=== PATIENT | male | born 1935 | race Caucasian/White ===

== ENCOUNTER 2017-10-30 11:02 | Outpatient (RCR) | payer MEDICARE ==
[~2017-10-30 11:02] MED LIST: ASPIRIN EC325 MG ORAL; ASPIRIN81 M1 PO; COLCHICINE0.6 MG PO; CULTURELLE1 EACH PO; FENOFIBRATE145 MG PO; IMODIUM2 MG PO; LANOXIN125 MCG PO; METFORMIN HCL500 MG PO; POTASSIUM CHLO10 MEQ PO; TENORMIN25 MG PO
[2017-11-18] MEDS ORDERED: ISOSORBIDE DINI30 MG ORAL (00:34)
[2017-11-18] MEDS ORDERED: BUMETANIDE1 MG ORAL (00:34)
[2017-11-18] MEDS ORDERED: METOPROLOL TART25 MG ORAL (00:34)
[2017-11-18] MEDS ORDERED: ANORO ELLIPTA1 EACH (00:34)
[2017-11-18] MEDS ORDERED: DIGOXIN125 MCG ORAL (00:34)
[2017-11-18] MEDS ORDERED: GABAPENTIN300 MG ORAL (00:34)
== END 2017-11-22 | disposition home or self-care (01) ==
LOC: WCC 11:02
DX: L98.493 Non-pressure chronic ulcer of skin of other sites with necrosis of muscle (principal); T81.31XS Disruption of external operation (surgical) wound, not elsewhere classified, sequela; I10 Essential (primary) hypertension; Z85.46 Personal history of malignant neoplasm of prostate; Z85.51 Personal history of malignant neoplasm of bladder; Z87.891 Personal history of nicotine dependence; Z85.72 Personal history of non-Hodgkin lymphomas; Z79.82 Long term (current) use of aspirin; Z88.8 Allergy status to other drugs, medicaments and biological substances; Z91.013 Allergy to seafood
CPT/HCPCS: G0463

== ENCOUNTER 2017-11-17 21:23 | Inpatient (IN) | payer MEDICARE ==
[~2017-11-17] VITALS: Ht 172.7 cm; Wt 67.7 kg
[2017-11-17 21:25] VITALS: BP 130/70
--- NOTE | 2017-11-17 21:28 | Emergency Room Report ---
History of Present Illness General Chief Complaint: Chest Pain Source: Patient, EMS Present Illness HPI This is an 82-year-old male with multiple medical problem. He has a history of atrial fibrillation but not on anticoagulants in. He has a history of multiple cancers including T-cell lymphoma. He has a colostomy bag and a ileostomy. He presents with chief complaint of chest pressure that started this afternoon. He said this occurred after he had his pulmonary function test. Nothing made it better. Nothing made it worse. No nausea no vomiting. No fever or chills. No diaphoresis. No radiation. Allergies: Coded Allergies: CIPROFLOXACIN (Verified Allergy, Intermediate, 07/06/16) ALLOPURINOL (Verified Allergy, Mild, Rash, 07/12/12) ERYTHROMYCIN BASE (Verified Allergy, Mild, RASH, 07/12/12) Patient History Past Medical History: see triage record, old chart reviewed, HTN, CAD, AFib Past Surgical History: other Pertinent Family History: none Social History: Denies: smoking Immunizations: other Reviewed Nursing Documentation: PMH: Agreed Nursing Documentation-PMH Past Medical History: No History, Except For Hx Hypertension: Yes Hx Diabetes: Yes Hx Cancer: Yes - T CELL LYMPHOMA, prostate Hx Gastrointestinal Problems: Yes Hx Weakness: Yes - Bilateral lower extremity Review of Systems Eye: Denies: eye pain, blurred vision ENT: Denies: ear pain, nose congestion, throat swelling Respiratory: Denies: cough, shortness of breath Cardiovascular: Reports: chest pain, Denies: palpitations Gastrointestinal: Denies: abdominal pain, diarrhea, nausea, vomiting Musculoskeletal: Denies: back pain, joint pain Skin: Denies: rash Neurological: Denies: headache, numbness Endocrine: Denies: increased thirst, increased urine Hematologic/Lymphatic: Denies: easy bruising All Other Systems: negative except mentioned in HPI Physical Exam Vital Signs Date Time Temp Pulse Resp B/P (MAP) Pulse Ox O2 Delivery O2 Flow Rate FiO2 11/17/17 21:14 97.0 97 20 130/70 96 Room Air vitals normal Sp02 EP Interpretation: reviewed, normal General Appearance: well appearing, no apparent distress, alert Head: normocephalic, atraumatic Eyes: bilateral eye PERRL, bilateral eye EOMI ENT: hearing grossly normal, normal pharynx Neck: full range of motion, supple, no meningismus Respiratory: chest non-tender, lungs clear, normal breath sounds Cardiovascular #1: regular rate, rhythm, no murmur Gastrointestinal: normal bowel sounds, non tender, no mass, no organomegaly, no bruit, non-distended Musculoskeletal: back normal, gait/station normal, normal range of motion Psychiatric: mood/affect normal Skin: warm/dry Medical Decision Making Diagnostic Impression: Primary Impression: Chest pain Qualified Codes: R07.9 - Chest pain, unspecified Additional Impression: CHF exacerbation Qualified Codes: I50.9 - Heart failure, unspecified ER Course Patient with atypical chest pain and tightness. No evidence of PE or dissection. Troponin negative. Patient felt better now. He refused aspirin here. Lasix given. Will admit for further workup. Laboratory Tests Test 11/17/17 21:30 White Blood Count 11.6 K/UL (4.8-10.8) H Red Blood Count 4.19 M/UL (4.70-6.10) L Hemoglobin 11.1 G/DL (14.2-18.0) L Hematocrit 35.9 % (42.0-52.0) L Mean Corpuscular Volume 86 FL (80-99) Mean Corpuscular Hemoglobin 26.5 PG (27.0-31.0) L Mean Corpuscular Hemoglobin Concent 31.0 G/DL (32.0-36.0) L Red Cell Distribution Width 17.6 % (11.6-14.8) H Platelet Count 280 K/UL (150-450) Mean Platelet Volume 5.9 FL (6.5-10.1) L Neutrophils (%) (Auto) 59.1 % (45.0-75.0) Lymphocytes (%) (Auto) 32.7 % (20.0-45.0) Monocytes (%) (Auto) 5.0 % (1.0-10.0) Eosinophils (%) (Auto) 2.0 % (0.0-3.0) Basophils (%) (Auto) 1.3 % (0.0-2.0) Prothrombin Time 10.6 SEC (9.30-11.50) Prothromb Time International Ratio 1.0 (0.9-1.1) Activated Partial Thromboplast Time 28 SEC (23-33) Sodium Level 140 MMOL/L (136-145) Potassium Level 4.6 MMOL/L (3.5-5.1) Chloride Level 105 MMOL/L (98-107) Carbon Dioxide Level 27 MMOL/L (21-32) Anion Gap 8 mmol/L (5-15) Blood Urea Nitrogen 24 mg/dL (7-18) H Creatinine 2.0 MG/DL (0.55-1.30) H Estimat Glomerular Filtration Rate mL/min (>60) Glucose Level 119 MG/DL (74-106) H Calcium Level 8.4 MG/DL (8.5-10.1) L Total Bilirubin 0.3 MG/DL (0.2-1.0) Aspartate Amino Transf (AST/SGOT) 19 U/L (15-37) Alanine Aminotransferase (ALT/SGPT) 12 U/L (12-78) Alkaline Phosphatase 61 U/L (46-116) Total Creatine Kinase 18 U/L (26-308) L Creatine Kinase MB 0.8 NG/ML (0.0-3.6) Creatine Kinase MB Relative Index 4.4 Troponin I 0.000 ng/mL (0.000-0.056) Pro-B-Type Natriuretic Peptide 2047 pg/mL (0-125) H Total Protein 5.7 G/DL (6.4-8.2) L Albumin 2.0 G/DL (3.4-5.0) L Globulin 3.7 g/dL Albumin/Globulin Ratio 0.5 (1.0-2.7) L Lab Results Impression labs with elevated BNP EKG Diagnostic Results Rate: normal Rhythm: other - afib ST Segments: no acute changes ASA given to the pt in ED: No - pt refused Rhythm Strip Diag. Results Rhythm Strip Time: 23:28 EP Interpretation: yes Rate: 98 Rhythm: no PVC's, no ectopy, other - afib Chest X-Ray Diagnostic Results Chest X-Ray Diagnostic Results : Chest X-Ray Ordered: Yes # of Views/Limited/Complete: 1 View Indication: Chest Pain EP Interpretation: Yes Interpretation: no consolidation, no effusion, no pneumothorax, other - vasc congestion Impression: Other - chf Electronically Signed by: Akil Schultz MD Last Vital Signs Date Time Temp Pulse Resp B/P (MAP) Pulse Ox O2 Delivery O2 Flow Rate FiO2 11/17/17 21:14 97.0 97 20 130/70 96 Room Air Status: improved Disposition: ADMITTED INPATIENT Condition: Serious AKIL SCHULTZ M.D. Nov 17, 2017 21:28
[2017-11-17] MEDS ORDERED: Aspirin Baby 81mg ORAL ONE (21:30)
[2017-11-17 22:07] LABS: BASOPHILS % (AUTO) 1.3 % (0.0-2.0); HEMATOCRIT 35.9 % (42.0-52.0); HEMOGLOBIN 11.1 G/DL (14.2-18.0); LYMPHOCYTES % (AUTO) 32.7 % (20.0-45.0); MEAN CORPUSCULAR VOLUME 86 FL (80-99); NEUTROPHILS % (AUTO) 59.1 % (45.0-75.0); PLATELET COUNT 280 K/UL (150-450); RED BLOOD COUNT 4.19 M/UL (4.70-6.10); RED CELL DISTRIBUTION WIDTH 17.6 % (11.6-14.8); WHITE BLOOD COUNT 11.6 K/UL (4.8-10.8)
[2017-11-17 22:34] LABS: ANION GAP 8 mmol/L (5-15); BLOOD UREA NITROGEN 24 mg/dL (7-18); CALCIUM 8.4 MG/DL (8.5-10.1); CARBON DIOXIDE 27 MMOL/L (21-32); CHLORIDE 105 MMOL/L (98-107); POTASSIUM 4.6 MMOL/L (3.5-5.1); SODIUM 140 MMOL/L (136-145)
[2017-11-17 23:01] LABS: ALANINE AMINOTRANSFERASE 12 U/L (12-78); ALBUMIN/GLOBULIN RATIO 0.5 (1.0-2.7); ALKALINE PHOSPHATASE 61 U/L (46-116); ASPARTATE AMINO TRANSFERASE 19 U/L (15-37); BILIRUBIN,TOTAL 0.3 MG/DL (0.2-1.0); CKMB 0.8 NG/ML (0.0-3.6); CREATINE KINASE 18 U/L (26-308)
[2017-11-17 23:30] VITALS: BP 127/83
[2017-11-18] VITALS (7 sets, daily range): BP systolic 113–125; BP diastolic 69–82
[2017-11-18] MEDS ORDERED: DIGOXIN125 MCG ORAL (00:34)
[2017-11-18] MEDS ORDERED: ISOSORBIDE DINI30 MG ORAL (00:34)
[2017-11-18] MEDS ORDERED: BUMETANIDE1 MG ORAL (00:34)
[2017-11-18] MEDS ORDERED: METOPROLOL TART25 MG ORAL (00:34)
[2017-11-18] MEDS ORDERED: GABAPENTIN300 MG ORAL (00:34)
[2017-11-18] MEDS ORDERED: ANORO ELLIPTA1 EACH (00:34)
[2017-11-18] MEDS ORDERED: Albuterol/Ipratropium 3ml neb HHN PRN (05:15)
[2017-11-18] MEDS ORDERED: Miralax 17gm pkt ORAL PRN (05:15)
[2017-11-18] MEDS: NovoLOG Insulin Flexpen SUBQ SCH ×4 (06:30→20:39)
--- NOTE | 2017-11-18 07:08 | Consultation ---
History of Present Illness General Date patient seen: Nov 18, 2017 Chief Complaint: Chest Pain Reason for Consultation: chest pain Present Illness HPI 82-year-old male with history of atrial fibrillation but not on anticoagulants , T-cell lymphoma, colostomy bag and a ileostomy presented with chief complaint of chest pressure that started yesterday afternoon. He said this occurred after he had his pulmonary function test. Nothing made it better. Nothing made it worse. No nausea no vomiting. Pt is admitted to telemetry for further evaluation. Allergies: Coded Allergies: CIPROFLOXACIN (Verified Allergy, Intermediate, 07/06/16) ALLOPURINOL (Verified Allergy, Mild, Rash, 07/12/12) ERYTHROMYCIN BASE (Verified Allergy, Mild, RASH, 07/12/12) Medication History Scheduled Aspirin* (Aspirin Ec*), 325 MG ORAL DAILY, (Reported) Atenolol (Tenormin), 25 MG PO DAILY, (Reported) Bumetanide* (Bumetanide*), 1 MG ORAL EVERY OTHER DAY, (Reported) Colchicine* (Colchicine*), 0.5 MG PO DAILY, (Reported) Digoxin* (Lanoxin*), 125 MCG PO DAILY, (Reported) Digoxin* (Digoxin*), 125 MCG ORAL DAILY, (Reported) Fenofibrate Nanocrystallized (Fenofibrate), 145 MG PO DAILY, (Reported) Gabapentin* (Gabapentin*), 300 MG ORAL BEDTIME, (Reported) Isosorbide Dinitrate* (Isordil*), 30 MG ORAL DAILY, (Reported) Lactobacillus Rhamnosus Gg* (Culturelle*), 1 EACH PO DAILY, (Reported) Loperamide HCl (Loperamide), 2 MG PO DAILY, (Reported) Metformin Hcl (Metformin Hcl), 500 MG PO DAILY, (Reported) Metoprolol Tartrate* (Metoprolol Tartrate*), 25 MG ORAL TID, (Reported) Potassium Chloride* (K-Dur*), 10 MEQ PO DAILY, (Reported) Umeclidinium Brm/Vilanterol Tr (Anoro Ellipta 62.5-25 Mcg INH), DAILY, (Reported ) Patient History Healthcare decision maker Resuscitation status Full Code Advanced Directive on File Past Medical/Surgical History Past Medical/Surgical History: (1) Atrial fibrillation Review of Systems All Other Systems: negative except mentioned in HPI Physical Exam Physical Exam Narrative General Appearance: WD/WN HEENT: normocephalic, anicteric Respiratory/Chest: chest wall non-tender, lungs clear, normal breath sounds Breasts: no masses Cardiovascular: normal peripheral pulses, regularly irregular Abdomen: normal bowel sounds, soft, non tender Genitourinary: normal external genitalia Skin: no rash Last 24 Hour Vital Signs Date Time Temp Pulse Resp B/P (MAP) Pulse Ox O2 Delivery O2 Flow Rate FiO2 11/18/17 04:00 106 11/18/17 04:00 97.3 91 18 123/79 99 Room Air 11/18/17 03:26 96 11/18/17 03:10 97.0 100 12 120/81 98 Room Air 11/18/17 03:05 100 12 120/81 98 Room Air 11/18/17 01:25 109 17 120/74 100 Room Air 11/17/17 23:30 106 20 127/83 97 Room Air 11/17/17 21:25 97.0 20 130/70 96 Room Air 11/17/17 21:25 97 20 Room Air 11/17/17 21:14 97.0 97 20 130/70 96 Room Air Intake and Output 11/17/17 11/18/17 19:00 07:00 Intake Total 0 ml Output Total 300 ml Balance -300 ml Intake Oral 0 ml Output Urine Total 300 ml # Bowel Movements 1 Laboratory Tests Test 11/17/17 21:30 White Blood Count 11.6 K/UL (4.8-10.8) H Red Blood Count 4.19 M/UL (4.70-6.10) L Hemoglobin 11.1 G/DL (14.2-18.0) L Hematocrit 35.9 % (42.0-52.0) L Mean Corpuscular Volume 86 FL (80-99) Mean Corpuscular Hemoglobin 26.5 PG (27.0-31.0) L Mean Corpuscular Hemoglobin Concent 31.0 G/DL (32.0-36.0) L Red Cell Distribution Width 17.6 % (11.6-14.8) H Platelet Count 280 K/UL (150-450) Mean Platelet Volume 5.9 FL (6.5-10.1) L Neutrophils (%) (Auto) 59.1 % (45.0-75.0) Lymphocytes (%) (Auto) 32.7 % (20.0-45.0) Monocytes (%) (Auto) 5.0 % (1.0-10.0) Eosinophils (%) (Auto) 2.0 % (0.0-3.0) Basophils (%) (Auto) 1.3 % (0.0-2.0) Prothrombin Time 10.6 SEC (9.30-11.50) Prothromb Time International Ratio 1.0 (0.9-1.1) Activated Partial Thromboplast Time 28 SEC (23-33) Sodium Level 140 MMOL/L (136-145) Potassium Level 4.6 MMOL/L (3.5-5.1) Chloride Level 105 MMOL/L (98-107) Carbon Dioxide Level 27 MMOL/L (21-32) Anion Gap 8 mmol/L (5-15) Blood Urea Nitrogen 24 mg/dL (7-18) H Creatinine 2.0 MG/DL (0.55-1.30) H Estimat Glomerular Filtration Rate mL/min (>60) Glucose Level 119 MG/DL (74-106) H Calcium Level 8.4 MG/DL (8.5-10.1) L Total Bilirubin 0.3 MG/DL (0.2-1.0) Aspartate Amino Transf (AST/SGOT) 19 U/L (15-37) Alanine Aminotransferase (ALT/SGPT) 12 U/L (12-78) Alkaline Phosphatase 61 U/L (46-116) Total Creatine Kinase 18 U/L (26-308) L Creatine Kinase MB 0.8 NG/ML (0.0-3.6) Creatine Kinase MB Relative Index 4.4 Troponin I 0.000 ng/mL (0.000-0.056) Pro-B-Type Natriuretic Peptide 2047 pg/mL (0-125) H Total Protein 5.7 G/DL (6.4-8.2) L Albumin 2.0 G/DL (3.4-5.0) L Globulin 3.7 g/dL Albumin/Globulin Ratio 0.5 (1.0-2.7) L Height (Feet): 5 Height (Inches): 8.00 Weight (Pounds): 150 Medications Current Medications Medications (Trade) Dose Ordered Sig/Justin Route PRN Reason Start Time Stop Time Status Last Admin Dose Admin Acetaminophen (Tylenol) 650 mg Q4H PRN ORAL Fever 11/18/17 05:15 12/18/17 05:14 Albuterol/ Ipratropium (Albuterol/ Ipratropium) 3 ml Q4H PRN HHN Shortness of Breath 11/18/17 05:15 11/23/17 05:14 Atenolol (Tenormin) 25 mg DAILY ORAL 11/18/17 09:00 12/18/17 08:59 UNV Dextrose (Dextrose 50%) STAT PRN IV Hypoglycemia 11/18/17 05:15 12/18/17 05:14 Digoxin (Lanoxin) 0.125 mg DAILY ORAL 11/18/17 09:00 12/18/17 08:59 Furosemide (Lasix) 40 mg EVERY 8 HOURS IV 11/18/17 06:00 12/18/17 05:59 11/18/17 06:40 Gabapentin (Neurontin) 300 mg BEDTIME ORAL 11/18/17 21:00 12/18/17 20:59 Heparin Sodium (Porcine) (Heparin 5000 units/ml) 5,000 units EVERY 12 HOURS SUBQ 11/18/17 09:00 12/18/17 08:59 Insulin Aspart (NovoLOG) BEFORE MEALS AND HS SUBQ 11/18/17 06:30 12/18/17 06:29 Metoprolol Tartrate (Lopressor) 25 mg TID ORAL 11/18/17 09:00 12/18/17 08:59 UNV Ondansetron HCl (Zofran) 4 mg Q6H PRN IVP Nausea & Vomiting 11/18/17 05:15 12/18/17 05:14 Polyethylene Glycol (Miralax) 17 gm DAILYPRN PRN ORAL Constipation 11/18/17 05:15 12/18/17 05:14 Temazepam (Restoril) 15 mg HSPRN PRN ORAL Insomnia 11/18/17 05:15 11/25/17 05:14 Assessment/Plan Problem List: (1) Chest pain ICD Codes: R07.9 - Chest pain, unspecified SNOMED: 83886537 Qualifiers: Qualified Codes: R07.9 - Chest pain, unspecified (2) Colostomy care ICD Codes: Z43.3 - Encounter for attention to colostomy SNOMED: 400809679 (3) Atrial fibrillation ICD Codes: I48.91 - Unspecified atrial fibrillation SNOMED: 57325908 Assessment/Plan serial ekg, troponin, echo cardio to see symptomatic treatment continue current meds CHOOC DELAROSA Nov 18, 2017 07:08
[2017-11-18] MEDS: Atenolol 25mg tab ORAL SCH (08:36)
[2017-11-18] MEDS: Digoxin 0.125mg tab ORAL SCH (08:36)
[2017-11-18] MEDS: Heparin 5000 units/ml inj SUBQ SCH ×2 (08:38→20:40)
[2017-11-18] MEDS ORDERED: Metoprolol 25mg tab ORAL PRN (09:00)
[2017-11-18] MEDS ORDERED: Metoprolol 25mg tab ORAL SCH (09:00)
--- NOTE | 2017-11-18 11:43 | Diagnostic Imaging Report ---
Indication: Chest pain Technique: XRAY Chest 1v Comparison: None Findings: Heart is borderline enlarged. Questionable surgical material projecting over the left aspect of the heart. Correlate with surgical history. No definite focal airspace consolidation. No large pleural effusion. No pneumothorax. No acute osseous abnormality seen. There is subtle lucency of the left humeral head. Impression: Question surgical material projecting over the left heart. Correlation with surgical history recommended. Alternatively echocardiogram or CT of the chest may be obtained for further evaluation. No definite focal airspace consolidation, pleural effusion or pneumothorax. Subtle asymmetric lucency of the left humeral head. Possibly artifactual. Dedicated radiographs can be obtained for better evaluation as clinically indicated.
[2017-11-18 12:26] LABS: BASOPHILS % (AUTO) 0.9 % (0.0-2.0); HEMOGLOBIN 11.3 G/DL (14.2-18.0); LYMPHOCYTES % (AUTO) 36.8 % (20.0-45.0); MEAN CORPUSCULAR VOLUME 85 FL (80-99); MONOCYTES % (AUTO) 4.7 % (1.0-10.0); NEUTROPHILS % (AUTO) 54.7 % (45.0-75.0); PLATELET COUNT 301 K/UL (150-450); RED BLOOD COUNT 4.34 M/UL (4.70-6.10); RED CELL DISTRIBUTION WIDTH 17.4 % (11.6-14.8); WHITE BLOOD COUNT 15.4 K/UL (4.8-10.8)
--- NOTE | 2017-11-18 12:38 | Cardiology Progress Note ---
Assessment/Plan Assessment/Plan The patient is seen and examined, full consult note is dictated. Objective Last 24 Hour Vital Signs Date Time Temp Pulse Resp B/P (MAP) Pulse Ox O2 Delivery O2 Flow Rate FiO2 11/18/17 10:26 97 18 Room Air 21 11/18/17 08:36 78 11/18/17 08:36 78 120/82 11/18/17 08:00 101 11/18/17 07:56 97.1 78 16 120/82 99 Room Air 11/18/17 04:00 106 11/18/17 04:00 97.3 91 18 123/79 99 Room Air 11/18/17 03:26 96 11/18/17 03:10 97.0 100 12 120/81 98 Room Air 11/18/17 03:05 100 12 120/81 98 Room Air 11/18/17 01:25 109 17 120/74 100 Room Air 11/17/17 23:30 106 20 127/83 97 Room Air 11/17/17 21:25 97.0 20 130/70 96 Room Air 11/17/17 21:25 97 20 Room Air 11/17/17 21:14 97.0 97 20 130/70 96 Room Air Intake and Output 11/17/17 11/18/17 19:00 07:00 Intake Total 0 ml Output Total 800 ml Balance -800 ml Intake Oral 0 ml Output Urine Total 800 ml # Bowel Movements 1 Laboratory Tests Test 11/17/17 21:30 11/18/17 09:00 11/18/17 12:00 White Blood Count 11.6 K/UL (4.8-10.8) H 15.4 K/UL (4.8-10.8) H Red Blood Count 4.19 M/UL (4.70-6.10) L 4.34 M/UL (4.70-6.10) L Hemoglobin 11.1 G/DL (14.2-18.0) L 11.3 G/DL (14.2-18.0) L Hematocrit 35.9 % (42.0-52.0) L 37.0 % (42.0-52.0) L Mean Corpuscular Volume 86 FL (80-99) 85 FL (80-99) Mean Corpuscular Hemoglobin 26.5 PG (27.0-31.0) L 26.0 PG (27.0-31.0) L Mean Corpuscular Hemoglobin Concent 31.0 G/DL (32.0-36.0) L 30.5 G/DL (32.0-36.0) L Red Cell Distribution Width 17.6 % (11.6-14.8) H 17.4 % (11.6-14.8) H Platelet Count 280 K/UL (150-450) 301 K/UL (150-450) Mean Platelet Volume 5.9 FL (6.5-10.1) L 5.6 FL (6.5-10.1) L Neutrophils (%) (Auto) 59.1 % (45.0-75.0) 54.7 % (45.0-75.0) Lymphocytes (%) (Auto) 32.7 % (20.0-45.0) 36.8 % (20.0-45.0) Monocytes (%) (Auto) 5.0 % (1.0-10.0) 4.7 % (1.0-10.0) Eosinophils (%) (Auto) 2.0 % (0.0-3.0) 3.0 % (0.0-3.0) Basophils (%) (Auto) 1.3 % (0.0-2.0) 0.9 % (0.0-2.0) Prothrombin Time 10.6 SEC (9.30-11.50) Prothromb Time International Ratio 1.0 (0.9-1.1) Activated Partial Thromboplast Time 28 SEC (23-33) Sodium Level 140 MMOL/L (136-145) Potassium Level 4.6 MMOL/L (3.5-5.1) Chloride Level 105 MMOL/L (98-107) Carbon Dioxide Level 27 MMOL/L (21-32) Anion Gap 8 mmol/L (5-15) Blood Urea Nitrogen 24 mg/dL (7-18) H Creatinine 2.0 MG/DL (0.55-1.30) H Estimat Glomerular Filtration Rate mL/min (>60) Glucose Level 119 MG/DL (74-106) H Calcium Level 8.4 MG/DL (8.5-10.1) L Total Bilirubin 0.3 MG/DL (0.2-1.0) Aspartate Amino Transf (AST/SGOT) 19 U/L (15-37) Alanine Aminotransferase (ALT/SGPT) 12 U/L (12-78) Alkaline Phosphatase 61 U/L (46-116) Total Creatine Kinase 18 U/L (26-308) L Creatine Kinase MB 0.8 NG/ML (0.0-3.6) Creatine Kinase MB Relative Index 4.4 Troponin I 0.000 ng/mL (0.000-0.056) 0.003 ng/mL (0.000-0.056) Pro-B-Type Natriuretic Peptide 2047 pg/mL (0-125) H Total Protein 5.7 G/DL (6.4-8.2) L Albumin 2.0 G/DL (3.4-5.0) L Globulin 3.7 g/dL Albumin/Globulin Ratio 0.5 (1.0-2.7) L Neutrophils % (Manual) Pending Lymphocytes % (Manual) Pending Platelet Estimate Pending Platelet Morphology Pending Reticulocyte Count Pending Fibrinogen Pending Iron Level Pending Unsaturated Iron Binding Pending Ferritin Pending Prostate Specific Antigen Pending Vitamin B12 Level Pending Methylmalonic Acid Pending Folate Pending Homocystine Pending KAVEH AL Nov 18, 2017 12:38
[2017-11-18 12:53] LABS: FERRITIN 273 NG/ML (8-388)
[2017-11-18 13:07] LABS: % IRON SATURATION 32 % (15-50); IRON 42 ug/dL (50-175); TOTAL IRON BINDING CAPACITY 132 ug/dL (250-450)
[2017-11-18] MEDS: Aspirin EC 81mg tab ORAL SCH (13:30)
--- NOTE | 2017-11-18 15:18 | General Progress Note ---
Progress Note Progress Note patient seen and examine full not will be dictated shortly YULISSA AYALA Nov 18, 2017 15:18
--- NOTE | 2017-11-18 18:00 | History and Physical Report ---
DATE OF ADMISSION: 11/17/2017 APPROXIMATE TIME: 9 a.m. ATTENDING PHYSICIAN: Morro Valente D.O. CONSULTANTS: 1. Sussy Moreno M.D. 2. Dr. Huertas. 3. Dr. Kohler. 4. Sukhdev Dyson M.D. 5. Nenita Youngblood M.D. CHIEF COMPLAINT: Chest pain and shortness of breath. BRIEF HISTORY: This is a 82-year-old male, who lives at home, yesterday went to doctor and received PFT after which he became slight chest pain, slight short of breath. The patient came to the ER diagnosed with chest pain, possible CHF exacerbation, admitted to telemetry for further care. Currently, calm in bed, feeling better, no complaint. REVIEW OF SYSTEMS: Slight chest pain. Slight short of breath. No nausea, vomiting, or diarrhea. PAST MEDICAL HISTORY: Includes lymphoma, prostate cancer, and CHF. PAST SURGICAL HISTORY: Colostomy, urostomy, prostate cancer surgery, . MEDICATIONS: Include Neurontin, Tenormin, Lanoxin, Lopressor, heparin, NovoLog, Lasix, , Zofran MiraLAX, and Tylenol. ALLERGIES: Include allopurinol, Cipro, and erythromycin. SOCIAL HISTORY: No smoking. Positive alcohol. No intravenous drug abuse. FAMILY HISTORY: Noncontributory. PHYSICAL EXAMINATION: GENERAL: Calm in bed, oriented x3, in no acute distress. VITAL SIGNS: Temperature is 97 degrees, pulse 78, respiratory rate 16, and blood pressure 120/82. CARDIOVASCULAR: No murmur. LUNGS: Clear. ABDOMEN: Bowel sounds positive. Nontender. Nondistended. EXTREMITIES: No cyanosis, clubbing, or edema. NEUROLOGIC: The patient moves all extremities, slightly weak. LABORATORY DATA: Laboratories at this time show white count 11.6, hemoglobin and hematocrit 11 over 35, platelets 280. BMP show BUN and creatinine 24 and 2.0 and glucose 119. Troponin 0.00. BNP is 2047. INR is 1.0, PTT is 28. ASSESSMENT: 1. Shortness of breath. 2. Chest pain. 3. Congestive heart failure. 4. Renal failure. 5. Prostate carcinoma. 6. Anemia. 7. Lymphoma. PLAN: 1. O2 and pulmonary treatment as needed. 2. OT, PT, dietary evaluation. 3. Troponin q.8 h. x3. 4. EKG in the morning. 5. Resume home medications. 6. CBC and BMP in the morning. 7. Dr. Moreno, Dr. Huertas, Dr. Kohler, Dr. Dyson, and Dr. Youngblood to consult. Morro Valente D.O. DR: Valdo JOB#: [id number] CC:
[2017-11-18] MEDS: Atorvastatin 20mg tab ORAL SCH (20:39)
--- NOTE | 2017-11-18 22:30 | Consultation ---
DATE OF CONSULTATION: 11/18/2017 CARDIOLOGY CONSULTATION CONSULTING PHYSICIAN: Sukhdev Dyson M.D. REFERRING PHYSICIAN: Morro Valente D.O. REASON FOR CONSULTATION: Management of chest pain. HISTORY OF PRESENT ILLNESS: The patient is a very pleasant 82-year-old gentleman, who presents to the hospital with complaints of chest pain, which started on 11/17/2017. The patient states that he had a pulmonary function test done at [facility] after which he started to feel pressure over the chest area with no relieving factor. He did not have any associated nausea, vomiting, or diaphoresis. He claims that he gets short of breath with walking about 120 feet. His shortness of breath with exertion has been pretty much stable. He has extensive cardiac history including history of moderate coronary artery disease, on medical therapy. No history of angioplasty or stent placement. He also has permanent atrial fibrillation and due to intolerance to anticoagulation therapy, a Watchman device was implanted by Dr. Aiken at [facility]. He also refused aspirin therapy. On arrival to the hospital, a 12-lead electrocardiogram showed atrial fibrillation with controlled ventricular response and no acute ST and T-wave abnormalities. Laboratory finding also revealed negative troponin I levels, therefore, acute myocardial infarction was ruled out. His proBNP was 2047. Last 2D echocardiography done at [facility] in May 2018 revealed acute heart failure with preserved left ventricular ejection fraction, which was estimated at 62%. He had restrictive filling pattern as well as tissue Doppler suggestive of severely elevated cardiac filling pressures. PAST MEDICAL HISTORY: Includes: 1. Coronary artery disease, on medical therapy. 2. Permanent atrial fibrillation. 3. History of T-cell lymphoma. 4. History of prostate cancer. 5. History of chronic kidney disease. At the time of discharge from [facility], his creatinine was 1.8. 6. History of hypertension. 7. History of chronic osteomyelitis. 8. History of urinary tract infection. 9. History of electrolyte derangement. PAST SURGICAL HISTORY: Watchman device implantation in the left atrial appendage. MEDICATIONS: List of medications in the outpatient setting, aspirin 325 mg p.o. daily, although the patient claims that he does not take aspirin, atenolol 25 mg p.o. daily, bumetanide 1 mg every other day, colchicine 0.5 mg p.o. daily, digoxin 125 mcg p.o. daily, fenofibrate 145 mg p.o. daily, gabapentin 300 mg p.o. nightly, Isordil 30 mg p.o. daily, Lactobacillus rhamnosus take one tablet q.8 h., loperamide 2 mg p.o. daily, metformin 500 mg daily, metoprolol 25 mg three times daily, and K-Dur 10 mEq p.o. daily. ALLERGIES: To ciprofloxacin, allopurinol, and erythromycin. HABITS: No history of tobacco, alcohol, or illicit drug use. REVIEW OF SYSTEMS: HEENT: Denies any headache, diplopia, or blurred vision. CONSTITUTIONAL: Denies any fever, chills, night sweats, or weight loss. CARDIOVASCULAR: Chest pain as mentioned above and shortness of breath with less than ordinary activity. Denies any PND, orthopnea, or leg swelling. PULMONARY: Denies any cough, hemoptysis, or wheezing. GASTROINTESTINAL: Denies any nausea, vomiting, diarrhea, constipation, abdominal pain, or GI bleed. GENITOURINARY: Denies any hematuria, dysuria, or incontinence. NEUROLOGIC: Denies any motor dysfunction, sensory deficit, or altered speech. PHYSICAL EXAMINATION: VITAL SIGNS: Blood pressure at the time of arrival to the emergency department was 130/70, respirations 20, pulse of 97, temperature 97.0 degrees Fahrenheit, and O2 saturation 96% on room air. GENERAL: The patient is a very pleasant 82-year-old gentleman, in no apparent respiratory distress. Alert and oriented x4. HEENT: Atraumatic and normocephalic. Anicteric. Pupils are equal, round, and reactive to light and accommodation. There is conjunctival pallor. Poor dentition. NECK: JVP less than 5 cm. No carotid bruit. Carotid upstrokes 2+ bilaterally. CARDIOVASCULAR: Normal S1, S2. Irregularly irregular rhythm. No murmurs, gallops, or rubs. PMI is at fourth intercostal space in the midclavicular line. LUNGS: Clear to auscultation bilaterally. ABDOMEN: Soft, nontender, and nondistended. No hepatosplenomegaly. Positive bowel sounds. EXTREMITIES: There is 1+ bilateral pedal edema. LABORATORY FINDINGS: Sodium is 140, potassium is 4.6, chloride 105, bicarbonate 27, BUN 24, creatinine 2.0, glucose 119, calcium is 8.4. Troponin I x2 negative. ProBNP was 2047. INR is 1.0. WBC is 11.6, hemoglobin 11.1, hematocrit 35.9, and platelet count is 280. INR is 1.0. A 12-lead electrocardiogram shows atrial fibrillation with no ST or T-wave abnormalities. Chest x-ray shows presence of a Watchman device in the left atrial appendage. Otherwise, no acute cardiopulmonary disease. ASSESSMENT AND PLAN: The patient is a very unfortunate 82-year-old gentleman, who is seen in Cardiology consultation at the request of Dr. Valente. 1. Chest pain. This could be secondary to underlying ischemic heart disease. He has history of moderate coronary artery disease, on medical therapy only. He claims that he does not take his aspirin. I do not see him to be on statins either. He continues on metoprolol 25 mg three times a day for control of atrial fibrillation as well as double product control for ischemic heart disease. 2. Myocardial infarction is ruled out. The patient is currently chest pain free. We will continue with medical therapy. I will convince him to continue baby aspirin and statins. He has had a nuclear stress test in 2017 at [facility]. It showed some [id number] size ischemia, was decided to continue medical therapy. A 12-lead electrocardiogram also does not show any acute ischemic features. 3. Permanent atrial fibrillation, status post Watchman device as he did not tolerate anticoagulation therapy. We will control ventricular response with metoprolol. 4. History of acute heart failure with preserved ejection fraction by 2D echocardiography in May 2017 at [facility], clinically he does not appear to be in heart failure at this time. He has been on bumetanide and we will continue to keep him on this medication. Nephrology input would be appreciated. 5. Acute kidney injury on chronic kidney disease. His creatinine at the time of discharge from [facility] was 1.8. Nephrology followup. 6. History of T-cell lymphoma. 7. History of hypertension. Blood pressure is well controlled with current therapy with atenolol and metoprolol. I would like to discontinue atenolol as he is already on beta-radha metoprolol. I would like to thank, Dr. Valente, for the courtesy of this consultation. Sukhdev Dyson M.D. DR: Juan R JOB#: [id number] CC:
[2017-11-19] VITALS: BP 121/78
[2017-11-19 04:00] VITALS: BP 117/66
--- NOTE | 2017-11-19 05:03 | Consultation ---
DATE OF CONSULTATION: 11/18/2017 UROLOGY CONSULTATION CONSULTING PHYSICIAN: Thor Solomon M.D. REASON FOR CONSULTATION: The patient is an 82-year-old male admitted to hospital with chest pain, who gives a history of bladder cancer. The patient is currently lying in bed without any significant complaints. He has a colostomy bag as well as a urostomy bag on the left side of his abdomen. The patient gives me a history of having a previous radical cystectomy for bladder cancer. PAST MEDICAL HISTORY: Significant for having a coronary artery disease, bladder cancer, and previous T-cell lymphoma. FAMILY HISTORY: Noncontributory. REVIEW OF SYSTEMS: Currently noncontributory with him being presently comfortable and having no further complaints. PHYSICAL EXAMINATION: VITAL SIGNS: Include temperature 97.1 degrees, pulse is 78, and blood pressure 120/82. HEAD AND NECK: Within normal limits. LUNGS: Clear to auscultation. HEART: S1 and S2. Heart sounds present. ABDOMEN: Soft and nontender. There is a urostomy bag and a colostomy bag, both look viable. GENITOURINARY: Scrotum has mild edema without any palpable masses or abnormalities. Penis is within normal limits. RECTAL: The patient refused a rectal exam at the present time. LABORATORY VALUES: Include white blood cell count 15.4, hemoglobin 11.3. Sodium 140, potassium 4.6, BUN of 24, and creatinine of 2.0. ASSESSMENT AND PLAN: My assessment on the patient is that he currently is admitted to the hospital with chest pain. He is feeling better. He has a history of bladder cancer, has renal insufficiency, has a urostomy in place, which appears to be draining clear urine. Currently, the urostomy and the previous bladder removal does not appear to be an active detriment at the current time and as long as he continues to improve during this hospital course, he may follow up with his regular urologist. Thor Solomon DR: David JOB#: [id number] CC:
[2017-11-19] MEDS: NovoLOG Insulin Flexpen SUBQ SCH ×4 (06:30→20:33)
[2017-11-19 07:17] LABS: ANION GAP 6 mmol/L (5-15); BLOOD UREA NITROGEN 27 mg/dL (7-18); CALCIUM 8.9 MG/DL (8.5-10.1); CARBON DIOXIDE 31 MMOL/L (21-32); CHLORIDE 103 MMOL/L (98-107); CREATININE 2.3 MG/DL (0.55-1.30); POTASSIUM 4.5 MMOL/L (3.5-5.1); SODIUM 140 MMOL/L (136-145)
[2017-11-19 07:30] LABS: BASOPHILS % (AUTO) 0.7 % (0.0-2.0); EOSINOPHILS % (AUTO) 3.2 % (0.0-3.0); HEMATOCRIT 38.2 % (42.0-52.0); HEMOGLOBIN 11.9 G/DL (14.2-18.0); LYMPHOCYTES % (AUTO) 35.6 % (20.0-45.0); MEAN CORPUSCULAR VOLUME 85 FL (80-99); MONOCYTES % (AUTO) 3.9 % (1.0-10.0); NEUTROPHILS % (AUTO) 56.7 % (45.0-75.0); PLATELET COUNT 280 K/UL (150-450); RED BLOOD COUNT 4.47 M/UL (4.70-6.10); RED CELL DISTRIBUTION WIDTH 17.4 % (11.6-14.8); WHITE BLOOD COUNT 12.7 K/UL (4.8-10.8)
--- NOTE | 2017-11-19 07:55 | General Progress Note ---
Assessment/Plan Problem List: (1) Lymphoma ICD Codes: C85.90 - Non-Hodgkin lymphoma, unspecified, unspecified site SNOMED: 052110638 (2) Prostate cancer ICD Codes: C61 - Malignant neoplasm of prostate SNOMED: 813060507 (3) Anemia ICD Codes: D64.9 - Anemia, unspecified SNOMED: 749825426 (4) Renal failure ICD Codes: N19 - Unspecified kidney failure SNOMED: 94724292 (5) Episode of generalized weakness ICD Codes: R53.1 - Weakness SNOMED: 73372393 (6) Chest pain ICD Codes: R07.9 - Chest pain, unspecified SNOMED: 96681396 Qualifiers: Qualified Codes: R07.9 - Chest pain, unspecified (7) CHF exacerbation ICD Codes: I50.9 - Heart failure, unspecified SNOMED: 30811661 Qualifiers: Qualified Codes: I50.9 - Heart failure, unspecified (8) Atrial fibrillation ICD Codes: I48.91 - Unspecified atrial fibrillation SNOMED: 90410265 (9) Colostomy care ICD Codes: Z43.3 - Encounter for attention to colostomy SNOMED: 868215130 Status: unchanged Assessment/Plan o2 pulm tx abx cbc bmp am ot pt diet Subjective Constitutional: Reports: weakness Allergies: Coded Allergies: CIPROFLOXACIN (Verified Allergy, Intermediate, 07/06/16) ALLOPURINOL (Verified Allergy, Mild, Rash, 07/12/12) ERYTHROMYCIN BASE (Verified Allergy, Mild, RASH, 07/12/12) All Systems: reviewed and negative except above Subjective sl weak sob Objective Last 24 Hour Vital Signs Date Time Temp Pulse Resp B/P (MAP) Pulse Ox O2 Delivery O2 Flow Rate FiO2 11/19/17 06:06 89 20 Room Air 21 11/19/17 04:00 66 11/19/17 04:00 97.0 76 20 117/66 99 Room Air 11/19/17 00:00 97.0 80 18 121/78 98 Room Air 11/19/17 00:00 70 11/18/17 20:01 97.0 83 18 125/70 98 11/18/17 20:00 76 11/18/17 16:00 80 11/18/17 16:00 97.0 77 20 118/75 97 Room Air 11/18/17 12:00 76 11/18/17 12:00 98.2 79 20 113/69 99 Room Air 11/18/17 10:26 97 18 Room Air 21 11/18/17 08:36 78 11/18/17 08:36 78 120/82 11/18/17 08:00 101 11/18/17 07:56 97.1 78 16 120/82 99 Room Air Intake and Output 11/18/17 11/19/17 19:00 07:00 Intake Total 800 ml Output Total 1800 ml 1000 ml Balance -1000 ml -1000 ml Intake Oral 800 ml Output Urine Total 1800 ml 1000 ml # Voids 1 # Bowel Movements 1 2 Laboratory Tests 11/18/17 09:00: Troponin I 0.003 11/18/17 12:00: White Blood Count 15.4H, Red Blood Count 4.34L, Hemoglobin 11.3L, Hematocrit 37.0L, Mean Corpuscular Volume 85, Mean Corpuscular Hemoglobin 26.0L, Mean Corpuscular Hemoglobin Concent 30.5L, Red Cell Distribution Width 17.4H, Platelet Count 301, Mean Platelet Volume 5.6L, Neutrophils (%) (Auto) 54.7, Lymphocytes (%) (Auto) 36.8, Monocytes (%) (Auto) 4.7, Eosinophils (%) (Auto) 3.0, Basophils (%) (Auto) 0.9, Differential Total Cells Counted 100, Neutrophils % (Manual) 57, Lymphocytes % (Manual) 34, Monocytes % (Manual) 7, Eosinophils % (Manual) 2, Basophils % (Manual) 0, Band Neutrophils 0, Platelet Estimate Adequate, Platelet Morphology Normal, Hypochromasia 1+, Anisocytosis 1+ , Reticulocyte Count 1.0, Fibrinogen 437H, Iron Level 42L, Total Iron Binding Capacity 132L, Percent Iron Saturation 32, Unsaturated Iron Binding 90L, Ferritin 273, Prostate Specific Antigen < 0.10L, Vitamin B12 Level 706, Methylmalonic Acid [Pending], Folate 16.0, Homocystine [Pending] 11/18/17 16:07: Urine Eosinophils Rare, Urine Random Creatinine [Pending], Urine Random Microalbumin [Pending], Urine Random Total Protein 32H, Urine Random Sodium 129H , Urine Creatinine 11.6L, Urine Microalbumin/Creatinine Ratio [Pending] 11/19/17 04:30: Troponin I 0.046, White Blood Count 12.7H, Red Blood Count 4.47L, Hemoglobin 11.9L, Hematocrit 38.2L, Mean Corpuscular Volume 85, Mean Corpuscular Hemoglobin 26.6L, Mean Corpuscular Hemoglobin Concent 31.1L, Red Cell Distribution Width 17.4H, Platelet Count 280, Mean Platelet Volume 5.6L, Neutrophils (%) (Auto) 56.7, Lymphocytes (%) (Auto) 35.6, Monocytes (%) (Auto) 3.9, Eosinophils (%) (Auto) 3.2H, Basophils (%) (Auto) 0.7, Sodium Level 140, Potassium Level 4.5, Chloride Level 103, Carbon Dioxide Level 31, Anion Gap 6, Blood Urea Nitrogen 27H, Creatinine 2.3H, Estimat Glomerular Filtration Rate , Glucose Level 79, Calcium Level 8.9, Digoxin Level 0.9 Height (Feet): 5 Height (Inches): 8.00 Weight (Pounds): 150 General Appearance: lethargic EENT: normal ENT inspection Neck: normal alignment Cardiovascular: normal peripheral pulses, normal rate, regular rhythm Respiratory/Chest: chest wall non-tender, decreased breath sounds Abdomen: normal bowel sounds, non tender, soft Extremities: normal inspection Edema: no edema noted Arm (L), no edema noted Arm (R), no edema noted Leg (L), no edema noted Leg (R), no edema noted Pedal (L), no edema noted Pedal (R), no edema noted Generalized Neurologic: responsive, motor weakness Skin: normal pigmentation, warm/dry MJ NORRIS Nov 19, 2017 07:55
[2017-11-19 08:00] VITALS: BP 100/66
--- NOTE | 2017-11-19 08:25 | Pulmonology Progress Note ---
Assessment/Plan Problems: (1) Chest pain (2) Colostomy care (3) Atrial fibrillation (4) Leukocytosis Assessment/Plan all consults reviewed check echo f/u cardio recommendations f/u troponin, slightly up Subjective ROS Limited/Unobtainable: No Interval Events: no new complains Constitutional: Reports: no symptoms HEENT: Repors: no symptoms Allergies: Coded Allergies: CIPROFLOXACIN (Verified Allergy, Intermediate, 07/06/16) ALLOPURINOL (Verified Allergy, Mild, Rash, 07/12/12) ERYTHROMYCIN BASE (Verified Allergy, Mild, RASH, 07/12/12) Objective Last 24 Hour Vital Signs Date Time Temp Pulse Resp B/P (MAP) Pulse Ox O2 Delivery O2 Flow Rate FiO2 11/19/17 08:00 97.0 80 20 100/66 97 Room Air 11/19/17 06:06 89 20 Room Air 21 11/19/17 04:00 66 11/19/17 04:00 97.0 76 20 117/66 99 Room Air 11/19/17 00:00 97.0 80 18 121/78 98 Room Air 11/19/17 00:00 70 11/18/17 20:01 97.0 83 18 125/70 98 11/18/17 20:00 76 11/18/17 16:00 80 11/18/17 16:00 97.0 77 20 118/75 97 Room Air 11/18/17 12:00 76 11/18/17 12:00 98.2 79 20 113/69 99 Room Air 11/18/17 10:26 97 18 Room Air 21 11/18/17 08:36 78 11/18/17 08:36 78 120/82 Intake and Output 11/18/17 11/19/17 19:00 07:00 Intake Total 800 ml Output Total 1800 ml 1000 ml Balance -1000 ml -1000 ml Intake Oral 800 ml Output Urine Total 1800 ml 1000 ml # Voids 1 # Bowel Movements 1 2 Objective General Appearance: WD/WN HEENT: normocephalic, anicteric Respiratory/Chest: chest wall non-tender, lungs clear, normal breath sounds Breasts: no masses Cardiovascular: normal peripheral pulses, regularly irregular Abdomen: normal bowel sounds, soft, non tender Genitourinary: normal external genitalia Skin: no rash Microbiology Date/Time Source Procedure Growth Status 11/18/17 04:00 Wound Gram Stain Pending Resulted 11/18/17 04:00 Wound Culture - Preliminary Gram Negative Bacillus 1 Resulted Laboratory Tests 11/18/17 09:00: Troponin I 0.003 11/18/17 12:00: White Blood Count 15.4H, Red Blood Count 4.34L, Hemoglobin 11.3L, Hematocrit 37.0L, Mean Corpuscular Volume 85, Mean Corpuscular Hemoglobin 26.0L, Mean Corpuscular Hemoglobin Concent 30.5L, Red Cell Distribution Width 17.4H, Platelet Count 301, Mean Platelet Volume 5.6L, Neutrophils (%) (Auto) 54.7, Lymphocytes (%) (Auto) 36.8, Monocytes (%) (Auto) 4.7, Eosinophils (%) (Auto) 3.0, Basophils (%) (Auto) 0.9, Differential Total Cells Counted 100, Neutrophils % (Manual) 57, Lymphocytes % (Manual) 34, Monocytes % (Manual) 7, Eosinophils % (Manual) 2, Basophils % (Manual) 0, Band Neutrophils 0, Platelet Estimate Adequate, Platelet Morphology Normal, Hypochromasia 1+, Anisocytosis 1+ , Reticulocyte Count 1.0, Fibrinogen 437H, Iron Level 42L, Total Iron Binding Capacity 132L, Percent Iron Saturation 32, Unsaturated Iron Binding 90L, Ferritin 273, Prostate Specific Antigen < 0.10L, Vitamin B12 Level 706, Methylmalonic Acid [Pending], Folate 16.0, Homocystine [Pending] 11/18/17 16:07: Urine Eosinophils Rare, Urine Random Creatinine [Pending], Urine Random Microalbumin [Pending], Urine Random Total Protein 32H, Urine Random Sodium 129H , Urine Creatinine 11.6L, Urine Microalbumin/Creatinine Ratio [Pending] 11/19/17 04:30: Troponin I 0.046, White Blood Count 12.7H, Red Blood Count 4.47L, Hemoglobin 11.9L, Hematocrit 38.2L, Mean Corpuscular Volume 85, Mean Corpuscular Hemoglobin 26.6L, Mean Corpuscular Hemoglobin Concent 31.1L, Red Cell Distribution Width 17.4H, Platelet Count 280, Mean Platelet Volume 5.6L, Neutrophils (%) (Auto) 56.7, Lymphocytes (%) (Auto) 35.6, Monocytes (%) (Auto) 3.9, Eosinophils (%) (Auto) 3.2H, Basophils (%) (Auto) 0.7, Sodium Level 140, Potassium Level 4.5, Chloride Level 103, Carbon Dioxide Level 31, Anion Gap 6, Blood Urea Nitrogen 27H, Creatinine 2.3H, Estimat Glomerular Filtration Rate , Glucose Level 79, Calcium Level 8.9, Digoxin Level 0.9 Current Medications Medications (Trade) Dose Ordered Sig/Justin Route PRN Reason Start Time Stop Time Status Last Admin Dose Admin Acetaminophen (Tylenol) 650 mg Q4H PRN ORAL Fever 11/18/17 05:15 12/18/17 05:14 Albuterol/ Ipratropium (Albuterol/ Ipratropium) 3 ml Q4H PRN HHN Shortness of Breath 11/18/17 05:15 11/23/17 05:14 Aspirin (Ecotrin) 81 mg DAILY ORAL 11/18/17 13:30 12/18/17 13:29 Atenolol (Tenormin) 25 mg DAILY ORAL 11/18/17 09:00 12/18/17 08:59 11/18/17 08:36 Atorvastatin Calcium (Lipitor) 20 mg BEDTIME ORAL 11/18/17 21:00 12/18/17 20:59 11/18/17 20:39 Dextrose (Dextrose 50%) STAT PRN IV Hypoglycemia 11/18/17 05:15 12/18/17 05:14 Digoxin (Lanoxin) 0.125 mg DAILY ORAL 11/18/17 09:00 12/18/17 08:59 11/18/17 08:36 Furosemide (Lasix) 40 mg EVERY 8 HOURS IV 11/18/17 06:00 12/18/17 05:59 11/19/17 06:46 Gabapentin (Neurontin) 300 mg BEDTIME ORAL 11/18/17 21:00 12/18/17 20:59 11/18/17 20:39 Heparin Sodium (Porcine) (Heparin 5000 units/ml) 5,000 units EVERY 12 HOURS SUBQ 11/18/17 09:00 12/18/17 08:59 11/18/17 20:40 Insulin Aspart (NovoLOG) BEFORE MEALS AND HS SUBQ 11/18/17 06:30 12/18/17 06:29 Metoprolol Tartrate (Lopressor) 25 mg TID PRN ORAL HR > 120 11/18/17 09:00 12/18/17 08:59 Ondansetron HCl (Zofran) 4 mg Q6H PRN IVP Nausea & Vomiting 11/18/17 05:15 12/18/17 05:14 Polyethylene Glycol (Miralax) 17 gm DAILYPRN PRN ORAL Constipation 11/18/17 05:15 12/18/17 05:14 Temazepam (Restoril) 15 mg HSPRN PRN ORAL Insomnia 11/18/17 05:15 11/25/17 05:14 CHOCO DELAROSA Nov 19, 2017 08:25
[2017-11-19] MEDS: Digoxin 0.125mg tab ORAL SCH (08:39)
[2017-11-19] MEDS: Atenolol 25mg tab ORAL SCH (08:39)
[2017-11-19] MEDS: Aspirin EC 81mg tab ORAL SCH (08:39)
[2017-11-19] MEDS: Heparin 5000 units/ml inj SUBQ SCH ×2 (08:40→20:33)
[2017-11-19] MEDS: cefTRIAXone 1 GM in D5W 55 ML IVPB SCH (10:20)
--- NOTE | 2017-11-19 10:49 | Diagnostic Imaging Report ---
Indication: Dyspnea Technique: XRAY Chest 1v Comparison: 11/17/2017 Findings: Exam limited by patient positioning, the patient rotated and leaning to the left. Borderline cardiomegaly again noted. Surgical material projecting over the left heart again seen. Again noted is asymmetric lucency of the left lung. Although this may in part be artifactual related to rotation the persistence of this finding raises question for other etiologies causing unilateral lung lucency such as Swyer-Daniele syndrome. No definite pneumothorax identified. Impression: Limited exam. Persistent asymmetric lucency of the left lung compared to the right. This may be artifactually exaggerated due to rotation however persistency of this finding raises question for additional etiologies. CT of the chest recommended for further evaluation.
[2017-11-19 12:00] VITALS: BP 108/94
--- NOTE | 2017-11-19 12:10 | Consultation ---
Consult Note Consult Note DATE OF CONSULTATION: 11/18/2017 HEMATOLOGY AND ONCOLOGY CONSULTATION REFERRING PHYSICIAN: Morro Valente D.O. REASON FOR CONSULTATION: Management of lymphoma T cell HISTORY OF PRESENT ILLNESS: The patient is a very pleasant 82-year-old gentleman, who presents to the hospital with complaints of chest pain, which started on 11/17/2017. The patient states that he had a pulmonary function test done at [facility] after which he started to feel pressure over the chest area with no relieving factor. He did not have any associated nausea, vomiting, or diaphoresis. He claims that he gets short of breath with walking about 120 feet. His shortness of breath with exertion has been pretty much stable. He has extensive cardiac history including history of moderate coronary artery disease, on medical therapy. No history of angioplasty or stent placement. He also has permanent atrial fibrillation and due to intolerance to anticoagulation therapy, a Watchman device was implanted by Dr. Aiken at [facility]. He also refused aspirin therapy. He has a history of T cell lymphoma and has been treated with Dr. Whyte for the past 6 years with rituxan in the office and has been following closely there. PAST MEDICAL HISTORY: Includes: 1. Coronary artery disease, on medical therapy. 2. Permanent atrial fibrillation. 3. History of T-cell lymphoma. 4. History of prostate cancer. 5. History of chronic kidney disease. At the time of discharge from [facility], his creatinine was 1.8. 6. History of hypertension. 7. History of chronic osteomyelitis. 8. History of urinary tract infection. 9. History of electrolyte derangement. PAST SURGICAL HISTORY: Watchman device implantation in the left atrial appendage. MEDICATIONS: List of medications in the outpatient setting, aspirin 325 mg p.o. daily, although the patient claims that he does not take aspirin, atenolol 25 mg p.o. daily, bumetanide 1 mg every other day, colchicine 0.5 mg p.o. daily, digoxin 125 mcg p.o. daily, fenofibrate 145 mg p.o. daily, gabapentin 300 mg p.o. nightly, Isordil 30 mg p.o. daily, Lactobacillus rhamnosus take one tablet q.8 h., loperamide 2 mg p.o. daily, metformin 500 mg daily, metoprolol 25 mg three times daily, and K-Dur 10 mEq p.o. daily. ALLERGIES: To ciprofloxacin, allopurinol, and erythromycin. HABITS: No history of tobacco, alcohol, or illicit drug use. REVIEW OF SYSTEMS: HEENT: Denies any headache, diplopia, or blurred vision. CONSTITUTIONAL: Denies any fever, chills, night sweats, or weight loss. CARDIOVASCULAR: Chest pain as mentioned above and shortness of breath with less than ordinary activity. Denies any PND, orthopnea, or leg swelling. PULMONARY: Denies any cough, hemoptysis, or wheezing. GASTROINTESTINAL: Denies any nausea, vomiting, diarrhea, constipation, abdominal pain, or GI bleed. GENITOURINARY: Denies any hematuria, dysuria, or incontinence. NEUROLOGIC: Denies any motor dysfunction, sensory deficit, or altered speech. PHYSICAL EXAMINATION: VITAL SIGNS: Last 24 Hour Vital Signs Date Time Temp Pulse Resp B/P (MAP) Pulse Ox O2 Delivery O2 Flow Rate FiO2 11/19/17 08:39 80 11/19/17 08:39 80 100/66 11/19/17 08:00 97.0 80 20 100/66 97 Room Air 11/19/17 06:06 89 20 Room Air 21 11/19/17 04:00 66 11/19/17 04:00 97.0 76 20 117/66 99 Room Air 11/19/17 00:00 97.0 80 18 121/78 98 Room Air 11/19/17 00:00 70 11/18/17 20:01 97.0 83 18 125/70 98 11/18/17 20:00 76 11/18/17 16:00 80 11/18/17 16:00 97.0 77 20 118/75 97 Room Air 11/18/17 12:00 76 11/18/17 12:00 98.2 79 20 113/69 99 Room Air GENERAL: The patient is a very pleasant 82-year-old gentleman, NAD HEENT: Atraumatic and normocephalic. Anicteric. Pupils are equal, round, and reactive to light and accommodation. There is conjunctival pallor. NECK: JVP less than 5 cm. No carotid bruit. Carotid upstrokes 2+ bilaterally. CARDIOVASCULAR: Normal S1, S2. Irregularly irregular rhythm. No murmurs, gallops, or rubs. LUNGS: Clear to auscultation bilaterally. ABDOMEN: Soft, nontender, and nondistended. No hepatosplenomegaly. Positive bowel sounds. EXTREMITIES: There is 1+ bilateral pedal edema. LABORATORY FINDINGS: Laboratory Tests Test 11/18/17 12:00 11/18/17 16:07 11/19/17 04:30 White Blood Count 15.4 K/UL (4.8-10.8) H 12.7 K/UL (4.8-10.8) H Red Blood Count 4.34 M/UL (4.70-6.10) L 4.47 M/UL (4.70-6.10) L Hemoglobin 11.3 G/DL (14.2-18.0) L 11.9 G/DL (14.2-18.0) L Hematocrit 37.0 % (42.0-52.0) L 38.2 % (42.0-52.0) L Mean Corpuscular Volume 85 FL (80-99) 85 FL (80-99) Mean Corpuscular Hemoglobin 26.0 PG (27.0-31.0) L 26.6 PG (27.0-31.0) L Mean Corpuscular Hemoglobin Concent 30.5 G/DL (32.0-36.0) L 31.1 G/DL (32.0-36.0) L Red Cell Distribution Width 17.4 % (11.6-14.8) H 17.4 % (11.6-14.8) H Platelet Count 301 K/UL (150-450) 280 K/UL (150-450) Mean Platelet Volume 5.6 FL (6.5-10.1) L 5.6 FL (6.5-10.1) L Neutrophils (%) (Auto) 54.7 % (45.0-75.0) 56.7 % (45.0-75.0) Lymphocytes (%) (Auto) 36.8 % (20.0-45.0) 35.6 % (20.0-45.0) Monocytes (%) (Auto) 4.7 % (1.0-10.0) 3.9 % (1.0-10.0) Eosinophils (%) (Auto) 3.0 % (0.0-3.0) 3.2 % (0.0-3.0) H Basophils (%) (Auto) 0.9 % (0.0-2.0) 0.7 % (0.0-2.0) Differential Total Cells Counted 100 Neutrophils % (Manual) 57 % (45-75) Lymphocytes % (Manual) 34 % (20-45) Monocytes % (Manual) 7 % (1-10) Eosinophils % (Manual) 2 % (0-3) Basophils % (Manual) 0 % (0-2) Band Neutrophils 0 % (0-8) Platelet Estimate Adequate Platelet Morphology Normal Hypochromasia 1+ Anisocytosis 1+ Reticulocyte Count 1.0 % (0.0-2.0) Fibrinogen 437 mg/dL (200-400) H Iron Level 42 ug/dL (50-175) L Total Iron Binding Capacity 132 ug/dL (250-450) L Percent Iron Saturation 32 % (15-50) Unsaturated Iron Binding 90 ug/dL (112-346) L Ferritin 273 NG/ML (8-388) Prostate Specific Antigen < 0.10 ng/mL (0.13-4.0) L Vitamin B12 Level 706 PG/ML (193-986) Methylmalonic Acid Pending Folate 16.0 NG/ML (8.6-58.9) Homocystine 9.9 umol/L (0.0-15.0) Urine Eosinophils Rare Urine Random Creatinine Pending Urine Random Microalbumin Pending Urine Random Total Protein 32 MG/DL (< 11.9) H Urine Random Sodium 129 MEQ/L (20-110) H Urine Creatinine 11.6 MG/DL (30.0-125.0) L Urine Microalbumin/Creatinine Ratio Pending Sodium Level 140 MMOL/L (136-145) Potassium Level 4.5 MMOL/L (3.5-5.1) Chloride Level 103 MMOL/L (98-107) Carbon Dioxide Level 31 MMOL/L (21-32) Anion Gap 6 mmol/L (5-15) Blood Urea Nitrogen 27 mg/dL (7-18) H Creatinine 2.3 MG/DL (0.55-1.30) H Estimat Glomerular Filtration Rate mL/min (>60) Glucose Level 79 MG/DL (74-106) Calcium Level 8.9 MG/DL (8.5-10.1) Troponin I 0.046 ng/mL (0.000-0.056) Digoxin Level 0.9 NG/ML (0.5-2.0) Chest x-ray shows presence of a Watchman device in the left atrial appendage. Otherwise, no acute cardiopulmonary disease. ASSESSMENT AND PLAN: # T cell lymphoma is on treatment with Dr. Whyte ([facility]) and has been on rituxan over the past 7 years as well as a NHL per patient that is in the actual lymph nodes. # Prostate cancer - s/p treatment and currently stable --> psa has been ordered # Anemia of chronic disease - likely related to chronic disease, workup has been reviewed # Leukocytosis likely related to reactive process versus from lymphoma, currently stable --> continue to monitor # Chest pain. This could be secondary to underlying ischemic heart disease. --> He has history of moderate coronary artery disease, on medical therapy only. # Myocardial infarction is ruled out. The patient is currently chest pain free. s/p watchman device # History of acute heart failure with preserved ejection fraction Raphael Huertas Nov 19, 2017 12:10
--- NOTE | 2017-11-19 15:33 | Consultation ---
DATE OF CONSULTATION: 11/19/2017 INFECTIOUS DISEASES CONSULTATION CONSULTING PHYSICIAN: Roderick Zuñiga M.D. PRIMARY ATTENDING PHYSICIAN: Morro Valente D.O. REASON FOR CONSULTATION: Leukocytosis. HISTORY OF PRESENT ILLNESS: This is an 82-year-old white male admitted on 11/17/2017, complaining of chest pain and shortness of breath. Currently, the patient is pain-free and has no complaint. Denies any fever. PAST MEDICAL HISTORY: Significant for T-cell lymphoma, prostate cancer, the patient had colostomy, urostomy, has diabetes mellitus, and atrial fibrillation. ALLERGIES: Allergic to allopurinol, Cipro, erythromycin. MEDICATIONS: Getting gabapentin, atorvastatin, aspirin, atenolol, digoxin, heparin, metoprolol, insulin, Lasix, Zofran, MiraLAX, DuoNeb inhaler. SOCIAL HISTORY: Lives at home. . No smoking. No IV drug abuse. REVIEW OF SYSTEMS: The patient does not have any complaints at the present time. Denies fever. He has occasional nonproductive cough. No pain at this time. PHYSICAL EXAMINATION: GENERAL APPEARANCE: No acute distress. HEAD AND NECK: [place] conjunctivae. HEART: S1, S2. Regular. LUNGS: Clear. ABDOMEN: Soft, flat. There is colostomy and urostomy in place. EXTREMITIES: No edema. NEUROLOGIC: Awake, alert, and oriented x3. SKIN: The patient has a small wound in sacral area. LABORATORY AND DIAGNOSTIC DATA: WBC 12.7, hemoglobin 11.9, hematocrit 38.2, platelet 280,000. Sodium 140, potassium 4.5, chloride 103, bicarbonate 31, BUN 27, creatinine 2.3, and glucose is 79. Albumin is low, 2. IMPRESSION: Leukocytosis. As the patient's cause of leukocytosis is not clear, we will try to rule out urinary tract infection. The patient has history of lymphoma, prostate cancer, status post urostomy and colostomy, diabetes mellitus, hypertension, history of atrial fibrillation. RECOMMENDATION: We will send UA, urine culture. We will ask for renal and abdominal ultrasound. We will follow up cultures and we will start antibiotic according to cultures. At the end of my exam, I thank Dr. Morro Valente for involving me in the care of this patient. Roderick Zuñiga M.D. DR: Kalani JOB#: [id number] CC:
[2017-11-19 16:00] VITALS: BP 129/73
--- NOTE | 2017-11-19 18:44 | Nephrology Progress Note ---
Assessment/Plan Assessment 1.DEEJAY 2.CKD 3.ACH 4.HTN 5. hx of prostate CA Plan plan fallow up with urine study monitoring renal function avoid NSAID replace electrolyte as need IVF us kidney Subjective Constitutional: Reports: no symptoms HEENT: Reports: no symptoms Genitourinary: Reports: no symptoms Neurologic/Psychiatric: Reports: no symptoms Subjective no acute events Objective Objective Last 24 Hour Vital Signs Date Time Temp Pulse Resp B/P (MAP) Pulse Ox O2 Delivery O2 Flow Rate FiO2 11/19/17 16:00 97.3 76 20 129/73 97 Room Air 11/19/17 12:00 61 11/19/17 12:00 97.0 20 108/94 97 Room Air 11/19/17 08:39 80 11/19/17 08:39 80 100/66 11/19/17 08:00 43 11/19/17 08:00 97.0 80 20 100/66 97 Room Air 11/19/17 06:06 89 20 Room Air 21 11/19/17 04:00 66 11/19/17 04:00 97.0 76 20 117/66 99 Room Air 11/19/17 00:00 97.0 80 18 121/78 98 Room Air 11/19/17 00:00 70 11/18/17 20:01 97.0 83 18 125/70 98 11/18/17 20:00 76 Intake and Output 11/18/17 11/19/17 19:00 07:00 Intake Total 800 ml Output Total 1800 ml 1000 ml Balance -1000 ml -1000 ml Intake Oral 800 ml Output Urine Total 1800 ml 1000 ml # Voids 1 # Bowel Movements 1 2 Laboratory Tests 11/19/17 04:30: White Blood Count 12.7H, Red Blood Count 4.47L, Hemoglobin 11.9L, Hematocrit 38.2L, Mean Corpuscular Volume 85, Mean Corpuscular Hemoglobin 26.6L, Mean Corpuscular Hemoglobin Concent 31.1L, Red Cell Distribution Width 17.4H, Platelet Count 280, Mean Platelet Volume 5.6L, Neutrophils (%) (Auto) 56.7, Lymphocytes (%) (Auto) 35.6, Monocytes (%) (Auto) 3.9, Eosinophils (%) (Auto) 3.2H, Basophils (%) (Auto) 0.7, Sodium Level 140, Potassium Level 4.5, Chloride Level 103, Carbon Dioxide Level 31, Anion Gap 6, Blood Urea Nitrogen 27H, Creatinine 2.3H, Estimat Glomerular Filtration Rate , Glucose Level 79, Calcium Level 8.9, Troponin I 0.046, Digoxin Level 0.9 Height (Feet): 5 Height (Inches): 8.00 Weight (Pounds): 150 Objective HEENT: Anicteric. Pupils are equal, round, and reactive to light and accommodation. There is conjunctival pallor. Poor dentition. NECK: no JVP ,no lad CARDIOVASCULAR: Normal S1, S2. Irregularly irregular rhythm. No murmurs, gallops, or rubs. PMI is at fourth intercostal space in the midclavicular line. LUNGS: Clear to auscultation bilaterally. ABDOMEN: Soft, nontender, and nondistended. No hepatosplenomegaly. Positive bowel sounds. EXTREMITIES: There is 1+ bilateral pedal karis YULISSA AYALA Nov 19, 2017 18:44
[2017-11-19 20:00] VITALS: BP 109/67
[2017-11-19] MEDS: Atorvastatin 20mg tab ORAL SCH (20:30)
--- NOTE | 2017-11-19 21:29 | General Progress Note ---
Assessment/Plan Status: stable Assessment/Plan # T cell lymphoma is on treatment with Dr. Whyte ([facility]) --> has been on rituxan over the past 7 years as well as a NHL per patient that is in the actual lymph nodes. --> Continue treatment as outpatient # Prostate cancer - s/p treatment and currently stable --> psa <0.10 # Anemia of chronic disease - likely related to chronic disease, workup has been reviewed --> Blood transfusion not required unless symptomatic or hgb<7 # Leukocytosis likely related to reactive process versus from lymphoma, currently stable --> continue to monitor --> Improved. # Chest pain. This could be secondary to underlying ischemic heart disease. --> He has history of moderate coronary artery disease, on medical therapy only. # Myocardial infarction is ruled out. The patient is currently chest pain free. s/p watchman device # History of acute heart failure with preserved ejection fraction Subjective Date patient seen: Nov 19, 2017 Constitutional: Denies: no symptoms, chills, diaphoresis, fever, malaise, weakness, other HEENT: Denies: no symptoms, eye pain, blurred vision, tearing, double vision, ear pain, ear discharge, nose pain, nose congestion, throat pain, throat swelling, mouth pain, mouth swelling, other Cardiovascular: Denies: no symptoms, chest pain, edema, irregular heart rate, lightheadedness, palpitations, syncope, other Respiratory: Denies: no symptoms, cough, orthopnea, shortness of breath, SOB with excertion, SOB at rest, sputum, stridor, wheezing, other Gastrointestinal/Abdominal: Denies: no symptoms, abdomen distended, abdominal pain, black stools, tarry stools, blood in stool, constipated, diarrhea, difficulty swallowing, nausea, poor appetite, poor fluid intake, rectal bleeding , vomiting, other Genitourinary: Denies: no symptoms, burning, discharge, frequency, flank pain, hematuria, incontinence, pain, urgency, other Hematologic/Lymphatic: Reports: anemia Allergies: Coded Allergies: CIPROFLOXACIN (Verified Allergy, Intermediate, 07/06/16) ALLOPURINOL (Verified Allergy, Mild, Rash, 07/12/12) ERYTHROMYCIN BASE (Verified Allergy, Mild, RASH, 07/12/12) Subjective Hemoglobin stable. No acute distress. No fever. Objective Last 24 Hour Vital Signs Date Time Temp Pulse Resp B/P (MAP) Pulse Ox O2 Delivery O2 Flow Rate FiO2 11/19/17 16:00 67 11/19/17 16:00 97.3 76 20 129/73 97 Room Air 11/19/17 12:00 61 11/19/17 12:00 97.0 20 108/94 97 Room Air 11/19/17 08:39 80 11/19/17 08:39 80 100/66 11/19/17 08:00 43 11/19/17 08:00 97.0 80 20 100/66 97 Room Air 11/19/17 06:06 89 20 Room Air 21 11/19/17 04:00 66 11/19/17 04:00 97.0 76 20 117/66 99 Room Air 11/19/17 00:00 97.0 80 18 121/78 98 Room Air 11/19/17 00:00 70 Intake and Output 11/18/17 11/19/17 19:00 07:00 Intake Total 800 ml Output Total 1800 ml 1000 ml Balance -1000 ml -1000 ml Intake Oral 800 ml Output Urine Total 1800 ml 1000 ml # Voids 1 # Bowel Movements 1 2 Laboratory Tests 11/19/17 04:30: White Blood Count 12.7H, Red Blood Count 4.47L, Hemoglobin 11.9L, Hematocrit 38.2L, Mean Corpuscular Volume 85, Mean Corpuscular Hemoglobin 26.6L, Mean Corpuscular Hemoglobin Concent 31.1L, Red Cell Distribution Width 17.4H, Platelet Count 280, Mean Platelet Volume 5.6L, Neutrophils (%) (Auto) 56.7, Lymphocytes (%) (Auto) 35.6, Monocytes (%) (Auto) 3.9, Eosinophils (%) (Auto) 3.2H, Basophils (%) (Auto) 0.7, Sodium Level 140, Potassium Level 4.5, Chloride Level 103, Carbon Dioxide Level 31, Anion Gap 6, Blood Urea Nitrogen 27H, Creatinine 2.3H, Estimat Glomerular Filtration Rate , Glucose Level 79, Calcium Level 8.9, Troponin I 0.046, Digoxin Level 0.9 Height (Feet): 5 Height (Inches): 8.00 Weight (Pounds): 150 General Appearance: no apparent distress Respiratory/Chest: decreased breath sounds Abdomen: non tender, soft Neurologic: tax investigator II-XII grossly normal Skin: normal pigmentation, warm/dry Raphael Huertas Nov 19, 2017 21:29
[2017-11-20] VITALS: BP 121/79
--- NOTE | 2017-11-20 00:45 | Consultation ---
DATE OF CONSULTATION: 11/18/2017 NEPHROLOGY CONSULTATION CONSULTING PHYSICIAN: Nenita Youngblood M.D. REFERRING PHYSICIAN: Morro Valente D.O. REASON FOR CONSULTATION: Acute on chronic renal failure. HISTORY OF PRESENT ILLNESS: The patient is an 82-year-old unfortunate male with past medical history significant for history of T-cell lymphoma, bladder CA, prostate CA, history of colostomy and urostomy placement, history of chronic kidney disease, baseline creatinine was 1.8 not too long ago at [facility]. He presented to [facility] complaining of chest pain which happened at rest, was not radiating, was not associated with nausea, vomiting, or diaphoresis. Consequently, the patient was admitted in the hospital. I was called for management of renal disease and electrolyte imbalance. PAST MEDICAL HISTORY: History of chronic kidney disease, baseline creatinine of 1.8, history of hypertension, history of AFib, history of CAD, history of prostate CA, history of B-cell lymphoma, history of chronic osteomyelitis, history of urinary tract infection, and history of diabetes. PAST SURGICAL HISTORY: 1. History of pacemaker placement. 2. History of urostomy and colostomy placement. HOME MEDICATIONS: 1. Aspirin 81 mg p.o. daily. 2. Digoxin 125 mg daily. 3. Fenofibrate 145 mg daily. 4. Gabapentin 300 mg daily. 5. Isordil 30 mg daily. 6. Loperamide 2 mg p.r.n. daily. 7. Metformin 500 mg daily. 8. Metoprolol 25 mg p.o. daily. 9. K-Dur 10 mEq p.o. daily. ALLERGIES: He is allergic to Cipro, allopurinol, and erythromycin. HABITS: Denies any history of tobacco, alcohol, or drug use. FAMILY HISTORY: Noncontributory. REVIEW OF SYSTEMS: GENERAL: He denies any weight loss, weight gain, fever, chills, or night sweats. HEAD AND NECK: Denies any dysphagia, odynophagia, blurry vision, headache, or neck stiffness. PULMONARY: Denies any cough or hemoptysis. He has history of chronic dyspnea on exertion. With 120 feet, he gets usually short of breath. CARDIOVASCULAR: Complained of chest pain, happened at rest, was not radiating, was not associated with fever, chills, or night sweat. GASTROINTESTINAL: Denies any nausea, vomiting, diarrhea, hematemesis, or hematochezia. GENITOURINARY: Denies any dysuria or frequency. PHYSICAL EXAMINATION: VITAL SIGNS: Temperature 98 degrees, blood pressure 130/70, pulse rate of 97, and respiratory rate of 18. HEAD AND NECK: No JVP. No LAD. No thyromegaly. Extraocular movements intact. Pupils are reactive to light and accommodation. LUNGS: Clear to auscultation. CARDIAC: Regular rate and rhythm. S1 and S2. No murmur. No rub. ABDOMEN: Soft, nontender. Colostomy bag and urostomy in place. EXTREMITIES: No edema. No clubbing. No cyanosis. NEUROLOGIC: Cranial nerves II through XII within normal limits. Upper and lower extremities are grossly intact. LABORATORY AND DIAGNOSTIC DATA: Lab values on admission revealed WBC count of 12.7, hemoglobin of 11.9, hematocrit of 38.2, and platelet count of 280,000. Chemistry revealed sodium 140, potassium 4.5, chloride 103, bicarbonate 31, BUN of 27, and now creatinine up to 2.6. There is no UA. ASSESSMENT: 1. Acute on chronic renal failure. The etiology of acute renal failure including acute tubular necrosis versus worsening of the obstructive uropathy. 2. Chronic kidney disease due to diabetic nephropathy versus obstructive uropathy. 3. Hypertension. 4. Dyslipidemia. 5. Atrial fibrillation. 6. Diabetes. PLAN: Obtain UA. Check random urine protein/creatinine ratio to calculate the proteinuria. Check the urine sodium and creatinine to calculate fractional excretion of sodium. Ultrasound of the kidneys to rule out obstruction. Monitoring urine output. Avoid any NSAID or nephrotoxic. Again, I would like to thank Dr. Valente for allowing me to participate in the care of this patient. Nenita Youngblood M.D. DR: BECKY JOB#: [id number] CC:
[2017-11-20 04:00] VITALS: BP 112/62
[2017-11-20] MEDS: NovoLOG Insulin Flexpen SUBQ SCH ×4 (06:30→21:00)
[2017-11-20 08:00] VITALS: BP 116/74
[2017-11-20] MEDS: Digoxin 0.125mg tab ORAL SCH (08:39)
[2017-11-20] MEDS: Atenolol 25mg tab ORAL SCH (08:39)
[2017-11-20] MEDS: Aspirin EC 81mg tab ORAL SCH (08:40)
[2017-11-20] MEDS: Heparin 5000 units/ml inj SUBQ SCH ×2 (08:41→21:00)
[2017-11-20] MEDS: cefTRIAXone 1 GM in D5W 55 ML IVPB SCH (09:00)
[2017-11-20 10:46] LABS: APPEARANCE,URINE VERY CLOUDY; BILIRUBIN, URINE NEGATIVE (NEGATIVE); COLOR,URINE PALE YELLOW; GLUCOSE, URINE (UA) NEGATIVE (NEGATIVE); KETONES,URINE NEGATIVE (NEGATIVE); LEUKOCYTE ESTERASE ,URINE 3+ (NEGATIVE); NITRITE,URINE POSITIVE (NEGATIVE); PH,URINE 7 (4.5-8.0); PROTEIN,URINE 2+ (NEGATIVE); UROBILINOGEN,URINE NORMAL MG/DL (0.0-1.0)
--- NOTE | 2017-11-20 11:38 | Diagnostic Imaging Report ---
APPROVED REPORT CPT Code: 39505 Present Symptoms Lower Extremity Pain: Bilateral BILATERAL: Imaging reveals a patent deep venous system bilaterally. There is no evidence of thrombus within the femoral, popliteal or tibial segments. The greater saphenous veins are also within normal limits. Doppler indicates normal spontaneous flow within these segments.
[2017-11-20 12:00] VITALS: BP 120/78
--- NOTE | 2017-11-20 12:34 | Infectious Diseases Prog Note ---
Assessment/Plan Assessment/Plan A; Pyuria/UTI DM History of lymphoma History of prostate cancer ARF, CKD P; patient refuses IV medication discontinue Rocephin, Po Keflex Subjective ROS Limited/Unobtainable: Yes Constitutional: Reports: no symptoms, other - refused antibiotic and abdominal US Allergies: Coded Allergies: CIPROFLOXACIN (Verified Allergy, Intermediate, 07/06/16) ALLOPURINOL (Verified Allergy, Mild, Rash, 07/12/12) ERYTHROMYCIN BASE (Verified Allergy, Mild, RASH, 07/12/12) Objective Vital Signs Last 24 Hour Vital Signs Date Time Temp Pulse Resp B/P (MAP) Pulse Ox O2 Delivery O2 Flow Rate FiO2 11/20/17 08:39 67 11/20/17 08:39 67 116/62 11/20/17 08:13 74 20 Room Air 21 11/20/17 08:00 96.8 71 19 116/74 96 Room Air 11/20/17 08:00 68 11/20/17 04:00 98.6 87 18 112/62 97 Room Air 11/20/17 04:00 60 11/20/17 00:00 72 11/20/17 00:00 98.1 90 20 121/79 98 Room Air 11/19/17 20:00 77 11/19/17 20:00 96.4 72 22 109/67 97 Room Air 11/19/17 16:00 67 11/19/17 16:00 97.3 76 20 129/73 97 Room Air Height (Feet): 5 Height (Inches): 8.00 Weight (Pounds): 149 General Appearance: no acute distress HEENT: mucous membranes moist Respiratory/Chest: lungs clear Cardiovascular: normal rate Abdomen: soft, non tender, other - s/p colostomy Genitourinary: other - s/p urostomy Microbiology Date/Time Source Procedure Growth Status 11/18/17 04:00 Wound Gram Stain - Final Resulted 11/18/17 04:00 Wound Culture - Preliminary Escherichia Coli Gram Negative Bacillus 2 Gram Negative Bacillus 3 Resulted Laboratory Tests Test 11/20/17 10:10 Urine Color Pale yellow Urine Appearance Very cloudy Urine pH 7 (4.5-8.0) Urine Specific [place] 1.010 (1.005-1.035) Urine Protein 2+ (NEGATIVE) H Urine Glucose (UA) Negative (NEGATIVE) Urine Ketones Negative (NEGATIVE) Urine Occult Blood 5+ (NEGATIVE) H Urine Nitrite Positive (NEGATIVE) H Urine Bilirubin Negative (NEGATIVE) Urine Urobilinogen Normal MG/DL (0.0-1.0) Urine Leukocyte Esterase 3+ (NEGATIVE) H Urine RBC Tntc /HPF (0 - 0) H Urine WBC Tntc /HPF (0 - 0) H Urine Squamous Epithelial Cells Occasional /LPF Urine Bacteria Moderate /HPF (NONE) H Current Medications Medications (Trade) Dose Ordered Sig/Justin Route PRN Reason Start Time Stop Time Status Last Admin Dose Admin Acetaminophen (Tylenol) 650 mg Q4H PRN ORAL Fever 11/18/17 05:15 12/18/17 05:14 Albuterol/ Ipratropium (Albuterol/ Ipratropium) 3 ml Q4H PRN HHN Shortness of Breath 11/18/17 05:15 11/23/17 05:14 Aspirin (Ecotrin) 81 mg DAILY ORAL 11/18/17 13:30 12/18/17 13:29 11/19/17 08:39 Atenolol (Tenormin) 25 mg DAILY ORAL 11/18/17 09:00 12/18/17 08:59 11/20/17 08:39 Atorvastatin Calcium (Lipitor) 20 mg BEDTIME ORAL 11/18/17 21:00 12/18/17 20:59 11/19/17 20:30 Ceftriaxone Sodium 1 gm/ Dextrose 55 ml @ 110 mls/hr Q24H IVPB 11/19/17 09:00 11/26/17 08:59 11/19/17 10:20 Dextrose (Dextrose 50%) STAT PRN IV Hypoglycemia 11/18/17 05:15 12/18/17 05:14 Digoxin (Lanoxin) 0.125 mg DAILY ORAL 11/18/17 09:00 12/18/17 08:59 11/20/17 08:39 Furosemide (Lasix) 40 mg EVERY 8 HOURS IV 11/18/17 06:00 12/18/17 05:59 11/19/17 06:46 Gabapentin (Neurontin) 300 mg BEDTIME ORAL 11/18/17 21:00 12/18/17 20:59 11/19/17 20:30 Heparin Sodium (Porcine) (Heparin 5000 units/ml) 5,000 units EVERY 12 HOURS SUBQ 11/18/17 09:00 12/18/17 08:59 11/20/17 08:41 Insulin Aspart (NovoLOG) BEFORE MEALS AND HS SUBQ 11/18/17 06:30 12/18/17 06:29 Metoprolol Tartrate (Lopressor) 25 mg TID PRN ORAL HR > 120 11/18/17 09:00 12/18/17 08:59 Ondansetron HCl (Zofran) 4 mg Q6H PRN IVP Nausea & Vomiting 11/18/17 05:15 12/18/17 05:14 Polyethylene Glycol (Miralax) 17 gm DAILYPRN PRN ORAL Constipation 11/18/17 05:15 12/18/17 05:14 Temazepam (Restoril) 15 mg HSPRN PRN ORAL Insomnia 11/18/17 05:15 11/25/17 05:14 SHEELA SHERMAN Nov 20, 2017 12:34
--- NOTE | 2017-11-20 12:52 | Pulmonology Progress Note ---
Assessment/Plan Problems: (1) Chest pain (2) Colostomy care (3) Atrial fibrillation (4) Leukocytosis Assessment/Plan all consults reviewed check echo f/u cardio recommendations f/u troponin, slightly up urine pending renal studies pending Subjective ROS Limited/Unobtainable: No Allergies: Coded Allergies: CIPROFLOXACIN (Verified Allergy, Intermediate, 07/06/16) ALLOPURINOL (Verified Allergy, Mild, Rash, 07/12/12) ERYTHROMYCIN BASE (Verified Allergy, Mild, RASH, 07/12/12) Objective Last 24 Hour Vital Signs Date Time Temp Pulse Resp B/P (MAP) Pulse Ox O2 Delivery O2 Flow Rate FiO2 11/20/17 08:39 67 11/20/17 08:39 67 116/62 11/20/17 08:13 74 20 Room Air 21 11/20/17 08:00 96.8 71 19 116/74 96 Room Air 11/20/17 08:00 68 11/20/17 04:00 98.6 87 18 112/62 97 Room Air 11/20/17 04:00 60 11/20/17 00:00 72 11/20/17 00:00 98.1 90 20 121/79 98 Room Air 11/19/17 20:00 77 11/19/17 20:00 96.4 72 22 109/67 97 Room Air 11/19/17 16:00 67 11/19/17 16:00 97.3 76 20 129/73 97 Room Air Intake and Output 11/19/17 11/20/17 19:00 07:00 Intake Total 360 ml Output Total 1000 ml 1000 ml Balance -640 ml -1000 ml Intake Oral 360 ml Output Urine Total 1000 ml 1000 ml # Bowel Movements 2 2 Objective General Appearance: WD/WN HEENT: normocephalic, anicteric Respiratory/Chest: chest wall non-tender, lungs clear, normal breath sounds Breasts: no masses Cardiovascular: normal peripheral pulses, regularly irregular Abdomen: normal bowel sounds, soft, non tender Genitourinary: normal external genitalia Skin: no rash Microbiology Date/Time Source Procedure Growth Status 11/18/17 04:00 Wound Gram Stain - Final Resulted 11/18/17 04:00 Wound Culture - Preliminary Escherichia Coli Gram Negative Bacillus 2 Gram Negative Bacillus 3 Resulted Laboratory Tests 11/20/17 10:10: Urine Color Pale yellow, Urine Appearance Very cloudy, Urine pH 7, Urine Specific [place] 1.010, Urine Protein 2+H, Urine Glucose (UA) Negative, Urine Ketones Negative, Urine Occult Blood 5+H, Urine Nitrite PositiveH, Urine Bilirubin Negative, Urine Urobilinogen Normal, Urine Leukocyte Esterase 3+H, Urine RBC TntcH, Urine WBC TntcH, Urine Squamous Epithelial Cells Occasional, Urine Bacteria ModerateH Current Medications Medications (Trade) Dose Ordered Sig/Justin Route PRN Reason Start Time Stop Time Status Last Admin Dose Admin Acetaminophen (Tylenol) 650 mg Q4H PRN ORAL Fever 11/18/17 05:15 12/18/17 05:14 Albuterol/ Ipratropium (Albuterol/ Ipratropium) 3 ml Q4H PRN HHN Shortness of Breath 11/18/17 05:15 11/23/17 05:14 Aspirin (Ecotrin) 81 mg DAILY ORAL 11/18/17 13:30 12/18/17 13:29 11/19/17 08:39 Atenolol (Tenormin) 25 mg DAILY ORAL 11/18/17 09:00 12/18/17 08:59 11/20/17 08:39 Atorvastatin Calcium (Lipitor) 20 mg BEDTIME ORAL 11/18/17 21:00 12/18/17 20:59 11/19/17 20:30 Cephalexin (Keflex) 250 mg EVERY 12 HOURS ORAL 11/20/17 14:00 11/27/17 13:59 Dextrose (Dextrose 50%) STAT PRN IV Hypoglycemia 11/18/17 05:15 12/18/17 05:14 Digoxin (Lanoxin) 0.125 mg DAILY ORAL 11/18/17 09:00 12/18/17 08:59 11/20/17 08:39 Furosemide (Lasix) 40 mg EVERY 8 HOURS IV 11/18/17 06:00 12/18/17 05:59 11/19/17 06:46 Gabapentin (Neurontin) 300 mg BEDTIME ORAL 11/18/17 21:00 12/18/17 20:59 11/19/17 20:30 Heparin Sodium (Porcine) (Heparin 5000 units/ml) 5,000 units EVERY 12 HOURS SUBQ 11/18/17 09:00 12/18/17 08:59 11/20/17 08:41 Insulin Aspart (NovoLOG) BEFORE MEALS AND HS SUBQ 11/18/17 06:30 12/18/17 06:29 Metoprolol Tartrate (Lopressor) 25 mg TID PRN ORAL HR > 120 11/18/17 09:00 12/18/17 08:59 Ondansetron HCl (Zofran) 4 mg Q6H PRN IVP Nausea & Vomiting 11/18/17 05:15 12/18/17 05:14 Polyethylene Glycol (Miralax) 17 gm DAILYPRN PRN ORAL Constipation 11/18/17 05:15 12/18/17 05:14 Temazepam (Restoril) 15 mg HSPRN PRN ORAL Insomnia 11/18/17 05:15 11/25/17 05:14 CHOCO DELAROSA Nov 20, 2017 12:52
--- NOTE | 2017-11-20 13:03 | Wound Care Consultation ---
Wound Assessment Wound Assessment : Wound Number: 1 Wound Present on Admission: Yes New Wound: No Status Change of Wound: No Wound Location Body Site Modif: mid Wound Location Body Site: other - Sacrococcygeal Wound Type: pressure ulcer Lonny Test: Does not Lonny Pressure Ulcer Stage: Deep Tissue Injury Wound Thickness: Full Thickness Wound Length: 5.5 Wound Width: 5.5 Wound Depth: utd Percent of Wound Purple/Maroon: 100 Wound Drainage Amount: None Wound Drainage Odor: None/Absent Tissue Surrounding Wound: Erythemic Wound General Appearance: Reddened - maroon Wound Comment #1 Sacrococcygeal DTI pressure ulcer Recommendation -Local wound care per protocol -Keep clean and dry -Turn and reposition -Optimize nutrition -Low air loss mattress -Heel protector on both heels -Offload both heels -Assess and f/u accordingly for any changes LYN WILLARD RN Nov 20, 2017 13:03
--- NOTE | 2017-11-20 13:34 | General Progress Note ---
Assessment/Plan Problem List: (1) Lymphoma ICD Codes: C85.90 - Non-Hodgkin lymphoma, unspecified, unspecified site SNOMED: 579363409 (2) Prostate cancer ICD Codes: C61 - Malignant neoplasm of prostate SNOMED: 016960611 (3) Anemia ICD Codes: D64.9 - Anemia, unspecified SNOMED: 765128260 (4) Renal failure ICD Codes: N19 - Unspecified kidney failure SNOMED: 19397203 (5) Episode of generalized weakness ICD Codes: R53.1 - Weakness SNOMED: 26194263 (6) Chest pain ICD Codes: R07.9 - Chest pain, unspecified SNOMED: 32833522 Qualifiers: Qualified Codes: R07.9 - Chest pain, unspecified (7) CHF exacerbation ICD Codes: I50.9 - Heart failure, unspecified SNOMED: 04998760 Qualifiers: Qualified Codes: I50.9 - Heart failure, unspecified (8) Atrial fibrillation ICD Codes: I48.91 - Unspecified atrial fibrillation SNOMED: 62233588 (9) Colostomy care ICD Codes: Z43.3 - Encounter for attention to colostomy SNOMED: 300914205 Status: doing well, stable, progressing Assessment/Plan o2 pulm tx abx dc if clear Subjective Constitutional: Reports: weakness Allergies: Coded Allergies: CIPROFLOXACIN (Verified Allergy, Intermediate, 07/06/16) ALLOPURINOL (Verified Allergy, Mild, Rash, 07/12/12) ERYTHROMYCIN BASE (Verified Allergy, Mild, RASH, 07/12/12) All Systems: reviewed and negative except above Subjective sl weak sob Objective Last 24 Hour Vital Signs Date Time Temp Pulse Resp B/P (MAP) Pulse Ox O2 Delivery O2 Flow Rate FiO2 11/20/17 08:39 67 11/20/17 08:39 67 116/62 11/20/17 08:13 74 20 Room Air 21 11/20/17 08:00 96.8 71 19 116/74 96 Room Air 11/20/17 08:00 68 11/20/17 04:00 98.6 87 18 112/62 97 Room Air 11/20/17 04:00 60 11/20/17 00:00 72 11/20/17 00:00 98.1 90 20 121/79 98 Room Air 11/19/17 20:00 77 1/28/18 20:00 96.4 72 22 109/67 97 Room Air 11/19/17 16:00 67 11/19/17 16:00 97.3 76 20 129/73 97 Room Air Intake and Output 11/19/17 11/20/17 19:00 07:00 Intake Total 360 ml Output Total 1000 ml 1000 ml Balance -640 ml -1000 ml Intake Oral 360 ml Output Urine Total 1000 ml 1000 ml # Bowel Movements 2 2 Laboratory Tests 11/20/17 10:10: Urine Color Pale yellow, Urine Appearance Very cloudy, Urine pH 7, Urine Specific [place] 1.010, Urine Protein 2+H, Urine Glucose (UA) Negative, Urine Ketones Negative, Urine Occult Blood 5+H, Urine Nitrite PositiveH, Urine Bilirubin Negative, Urine Urobilinogen Normal, Urine Leukocyte Esterase 3+H, Urine RBC TntcH, Urine WBC TntcH, Urine Squamous Epithelial Cells Occasional, Urine Bacteria ModerateH Height (Feet): 5 Height (Inches): 8.00 Weight (Pounds): 149 General Appearance: alert EENT: normal ENT inspection Neck: normal alignment Cardiovascular: normal peripheral pulses, normal rate, regular rhythm Respiratory/Chest: chest wall non-tender, lungs clear, normal breath sounds Abdomen: normal bowel sounds, non tender, soft Extremities: normal inspection Edema: no edema noted Arm (L), no edema noted Arm (R), no edema noted Leg (L), no edema noted Leg (R), no edema noted Pedal (L), no edema noted Pedal (R), no edema noted Generalized Neurologic: responsive, motor weakness Skin: normal pigmentation, warm/dry MJ NORRIS Nov 20, 2017 13:34
[2017-11-20] MEDS: Cephalexin 250mg Cap ORAL SCH ×2 (13:59→21:00)
--- NOTE | 2017-11-20 14:19 | Nephrology Progress Note ---
Assessment/Plan Assessment 1.DEEJAY 2.CKD 3.ACH 4.HTN 5. hx of prostate CA Plan plan fallow up with urine study monitoring renal function avoid NSAID replace electrolyte as need IVF us kidney Subjective Subjective no acute events Objective Objective Last 24 Hour Vital Signs Date Time Temp Pulse Resp B/P (MAP) Pulse Ox O2 Delivery O2 Flow Rate FiO2 11/20/17 08:39 67 11/20/17 08:39 67 116/62 11/20/17 08:13 74 20 Room Air 21 11/20/17 08:00 96.8 71 19 116/74 96 Room Air 11/20/17 08:00 68 11/20/17 04:00 98.6 87 18 112/62 97 Room Air 11/20/17 04:00 60 11/20/17 00:00 72 11/20/17 00:00 98.1 90 20 121/79 98 Room Air 11/19/17 20:00 77 11/19/17 20:00 96.4 72 22 109/67 97 Room Air 11/19/17 16:00 67 11/19/17 16:00 97.3 76 20 129/73 97 Room Air Intake and Output 11/19/17 11/20/17 19:00 07:00 Intake Total 360 ml Output Total 1000 ml 1000 ml Balance -640 ml -1000 ml Intake Oral 360 ml Output Urine Total 1000 ml 1000 ml # Bowel Movements 2 2 Laboratory Tests 11/20/17 10:10: Urine Color Pale yellow, Urine Appearance Very cloudy, Urine pH 7, Urine Specific [place] 1.010, Urine Protein 2+H, Urine Glucose (UA) Negative, Urine Ketones Negative, Urine Occult Blood 5+H, Urine Nitrite PositiveH, Urine Bilirubin Negative, Urine Urobilinogen Normal, Urine Leukocyte Esterase 3+H, Urine RBC TntcH, Urine WBC TntcH, Urine Squamous Epithelial Cells Occasional, Urine Bacteria ModerateH Height (Feet): 5 Height (Inches): 8.00 Weight (Pounds): 149 Objective HEENT: Anicteric. Pupils are equal, round, and reactive to light and accommodation. There is conjunctival pallor. Poor dentition. NECK: no JVP ,no lad CARDIOVASCULAR: Normal S1, S2. Irregularly irregular rhythm. No murmurs, gallops, or rubs. PMI is at fourth intercostal space in the midclavicular line. LUNGS: Clear to auscultation bilaterally. ABDOMEN: Soft, nontender, and nondistended. No hepatosplenomegaly. Positive bowel sounds. EXTREMITIES: There is 1+ bilateral pedal karis YULISSA AYALA Nov 20, 2017 14:19
[2017-11-20 16:00] VITALS: BP 129/70
--- NOTE | 2017-11-20 17:58 | Cardiology Progress Note ---
Assessment/Plan Assessment/Plan 1. Chest pain. This could be secondary to underlying ischemic heart disease although 12-lead electrocardiogram also does not show any acute ischemic features. He has history of moderate coronary artery disease per nuclear stress test recently at [facility], on medical therapy. Continue ASA and atorvastatin. Follow up with Dr. Hugo, his primary resistance welder. 2. Permanent atrial fibrillation, status post Watchman device as he did not tolerate anticoagulation therapy. We will control ventricular response with metoprolol. 3. History of acute heart failure with preserved ejection fraction by 2D echocardiography in May 2017 at [facility], clinically he does not appear to be in heart failure at this time. He has been on bumetanide and we will continue to keep him on this medication. Nephrology input would be appreciated. 4. History of hypertension. Subjective Subjective Atrial fibrillation at 71. Objective Last 24 Hour Vital Signs Date Time Temp Pulse Resp B/P (MAP) Pulse Ox O2 Delivery O2 Flow Rate FiO2 11/20/17 15:47 71 11/20/17 08:39 67 11/20/17 08:39 67 116/62 11/20/17 08:13 74 20 Room Air 21 11/20/17 08:00 96.8 71 19 116/74 96 Room Air 11/20/17 08:00 68 11/20/17 04:00 98.6 87 18 112/62 97 Room Air 11/20/17 04:00 60 11/20/17 00:00 72 11/20/17 00:00 98.1 90 20 121/79 98 Room Air 11/19/17 20:00 77 11/19/17 20:00 96.4 72 22 109/67 97 Room Air Intake and Output 11/19/17 11/20/17 19:00 07:00 Intake Total 360 ml Output Total 1000 ml 1000 ml Balance -640 ml -1000 ml Intake Oral 360 ml Output Urine Total 1000 ml 1000 ml # Bowel Movements 2 2 2D Echo: LVEF 60-65%, Mild LAE, normal RVSP Laboratory Tests Test 11/20/17 10:10 Urine Color Pale yellow Urine Appearance Very cloudy Urine pH 7 (4.5-8.0) Urine Specific [place] 1.010 (1.005-1.035) Urine Protein 2+ (NEGATIVE) H Urine Glucose (UA) Negative (NEGATIVE) Urine Ketones Negative (NEGATIVE) Urine Occult Blood 5+ (NEGATIVE) H Urine Nitrite Positive (NEGATIVE) H Urine Bilirubin Negative (NEGATIVE) Urine Urobilinogen Normal MG/DL (0.0-1.0) Urine Leukocyte Esterase 3+ (NEGATIVE) H Urine RBC Tntc /HPF (0 - 0) H Urine WBC Tntc /HPF (0 - 0) H Urine Squamous Epithelial Cells Occasional /LPF Urine Bacteria Moderate /HPF (NONE) H Microbiology Date/Time Source Procedure Growth Status 11/18/17 04:00 Wound Gram Stain - Final Resulted 11/18/17 04:00 Wound Culture - Preliminary Escherichia Coli Gram Negative Bacillus 2 Gram Negative Bacillus 3 Resulted Objective HEENT: Atraumatic and normocephalic. Anicteric. Pupils are equal, round, and reactive to light and accommodation. There is conjunctival pallor. Poor dentition. NECK: JVP less than 5 cm. No carotid bruit. Carotid upstrokes 2+ bilaterally. CARDIOVASCULAR: Normal S1, S2. Irregularly irregular rhythm. No murmurs, gallops, or rubs. PMI is at fourth intercostal space in the midclavicular line. LUNGS: Clear to auscultation bilaterally. ABDOMEN: Soft, nontender, and nondistended. No hepatosplenomegaly. Positive bowel sounds. EXTREMITIES: There is 1+ bilateral pedal edema. KAVEH AL Nov 20, 2017 17:58
--- NOTE | 2017-11-20 18:29 | Cardiology Report ---
APPROVED REPORT EXAM: Two-dimensional and M-mode echocardiogram with Doppler and color Doppler. INDICATION Left ventricular function M-Mode DIMENSIONS IVSd0.7 (0.7-1.1cm)Left Atrium (MM)4.7 (1.6-4.0cm) LVDd4.3 (3.5-5.6cm)Aortic Root2.7 (2.0-3.7cm) PWd1.0 (0.7-1.1cm)Aortic Cusp Exc.0.8 (1.5-2.0cm) LVDs2.9 (2.5-4.0cm) PWs1.2 cm Normal left ventricular chamber size, systolic function and wall motion. Left ventricular ejection fraction estimated to be 60-65%. No evidence of left ventricular hypertrophy. No evidence of pericardial or pleural effusion. Right cardiac chamber sizes are within normal limits. Mild left atrial enlargement by 2D. Calcified aortic valve sclerosis with decreased cusp excursion. Thickened mitral valve leaflets with normal excursion. Mild mitral annulus and aortic root calcification. Pulmonic valve not well visualized. Normal tricuspid valve structure. IVC is normal in size and collapsible with respiration. A color flow and spectral Doppler study was performed and revealed: No aortic regurgitation. Trace mitral regurgitation. Mitral diastolic velocities could not be evaluated due to atrial fibrillation. Trace tricuspid regurgitation.
[2017-11-20 20:00] VITALS: BP 114/77
[2017-11-20] MEDS: Atorvastatin 20mg tab ORAL SCH (21:00)
--- NOTE | 2017-11-20 23:11 | Consultation ---
History of Present Illness General Date patient seen: Nov 20, 2017 Chief Complaint: Chest Pain Reason for Consultation: chest pain Present Illness HPI 82-year-old male, who lives at home, yesterday went to doctor and received PFT and developed cp. the pt became agitated today and stated that he wants to leave the pt appears anxious and had several complains/ Allergies: Coded Allergies: CIPROFLOXACIN (Verified Allergy, Intermediate, 07/06/16) ALLOPURINOL (Verified Allergy, Mild, Rash, 07/12/12) ERYTHROMYCIN BASE (Verified Allergy, Mild, RASH, 07/12/12) Medication History Scheduled Aspirin* (Aspirin Ec*), 325 MG ORAL DAILY, (Reported) Bumetanide* (Bumetanide*), 1 MG ORAL EVERY OTHER DAY, (Reported) Colchicine* (Colchicine*), 0.5 MG PO DAILY, (Reported) Digoxin* (Lanoxin*), 125 MCG PO DAILY, (Reported) Digoxin* (Digoxin*), 125 MCG ORAL DAILY, (Reported) Fenofibrate Nanocrystallized (Fenofibrate), 145 MG PO DAILY, (Reported) Gabapentin* (Gabapentin*), 300 MG ORAL BEDTIME, (Reported) Isosorbide Dinitrate* (Isordil*), 30 MG ORAL DAILY, (Reported) Lactobacillus Rhamnosus Gg* (Culturelle*), 1 EACH PO DAILY, (Reported) Loperamide HCl (Loperamide), 2 MG PO DAILY, (Reported) Metformin Hcl (Metformin Hcl), 500 MG PO DAILY, (Reported) Metoprolol Tartrate* (Metoprolol Tartrate*), 25 MG ORAL TID, (Reported) Potassium Chloride* (K-Dur*), 10 MEQ PO DAILY, (Reported) Umeclidinium Brm/Vilanterol Tr (Anoro Ellipta 62.5-25 Mcg INH), DAILY, (Reported ) Discontinued Medications Atenolol (Tenormin), 25 MG PO DAILY, (Reported) Discontinued Reason: MD discontinued med Patient History Limited by: medical condition History Provided By: Patient, Medical Record, PMD Healthcare decision maker Resuscitation status Full Code Advanced Directive on File Past Medical/Surgical History Past Medical/Surgical History: (1) Chest pain (2) Atrial fibrillation (3) Colostomy care (4) Anemia (5) Lymphoma (6) Renal failure (7) Prostate cancer (8) CHF exacerbation (9) Episode of generalized weakness (10) Leukocytosis Review of Systems Psychiatric: Reports: prior hx, anxiety, emotional problems Physical Exam General Appearance: no apparent distress, alert Neurologic: alert, oriented x 3, responsive, depressed affect Last 24 Hour Vital Signs Date Time Temp Pulse Resp B/P (MAP) Pulse Ox O2 Delivery O2 Flow Rate FiO2 11/20/17 20:00 97.3 72 18 114/77 99 11/20/17 16:00 98.1 89 18 129/70 96 Room Air 11/20/17 16:00 81 11/20/17 15:47 71 11/20/17 12:00 98.1 71 19 120/78 96 Room Air 11/20/17 08:39 67 11/20/17 08:39 67 116/62 11/20/17 08:13 74 20 Room Air 21 11/20/17 08:00 96.8 71 19 116/74 96 Room Air 11/20/17 08:00 68 11/20/17 04:00 98.6 87 18 112/62 97 Room Air 11/20/17 04:00 60 11/20/17 00:00 72 11/20/17 00:00 98.1 90 20 121/79 98 Room Air Intake and Output 11/19/17 11/20/17 19:00 07:00 Intake Total 360 ml Output Total 1000 ml 1000 ml Balance -640 ml -1000 ml Intake Oral 360 ml Output Urine Total 1000 ml 1000 ml # Bowel Movements 2 2 Laboratory Tests Test 11/20/17 10:10 Urine Color Pale yellow Urine Appearance Very cloudy Urine pH 7 (4.5-8.0) Urine Specific [place] 1.010 (1.005-1.035) Urine Protein 2+ (NEGATIVE) H Urine Glucose (UA) Negative (NEGATIVE) Urine Ketones Negative (NEGATIVE) Urine Occult Blood 5+ (NEGATIVE) H Urine Nitrite Positive (NEGATIVE) H Urine Bilirubin Negative (NEGATIVE) Urine Urobilinogen Normal MG/DL (0.0-1.0) Urine Leukocyte Esterase 3+ (NEGATIVE) H Urine RBC Tntc /HPF (0 - 0) H Urine WBC Tntc /HPF (0 - 0) H Urine Squamous Epithelial Cells Occasional /LPF Urine Bacteria Moderate /HPF (NONE) H Height (Feet): 5 Height (Inches): 8.00 Weight (Pounds): 149 Medications Current Medications Medications (Trade) Dose Ordered Sig/Justin Route PRN Reason Start Time Stop Time Status Last Admin Dose Admin Acetaminophen (Tylenol) 650 mg Q4H PRN ORAL Fever 11/18/17 05:15 12/18/17 05:14 Albuterol/ Ipratropium (Albuterol/ Ipratropium) 3 ml Q4H PRN HHN Shortness of Breath 11/18/17 05:15 11/23/17 05:14 Aspirin (Ecotrin) 81 mg DAILY ORAL 11/18/17 13:30 12/18/17 13:29 11/19/17 08:39 Atenolol (Tenormin) 25 mg DAILY ORAL 11/18/17 09:00 12/18/17 08:59 11/20/17 08:39 Atorvastatin Calcium (Lipitor) 20 mg BEDTIME ORAL 11/18/17 21:00 12/18/17 20:59 11/19/17 20:30 Cephalexin (Keflex) 250 mg EVERY 12 HOURS ORAL 11/20/17 14:00 11/27/17 13:59 11/20/17 13:59 Dextrose (Dextrose 50%) STAT PRN IV Hypoglycemia 11/18/17 05:15 12/18/17 05:14 Digoxin (Lanoxin) 0.125 mg DAILY ORAL 11/18/17 09:00 12/18/17 08:59 11/20/17 08:39 Furosemide (Lasix) 40 mg EVERY 8 HOURS IV 11/18/17 06:00 12/18/17 05:59 11/19/17 06:46 Gabapentin (Neurontin) 300 mg BEDTIME ORAL 11/18/17 21:00 12/18/17 20:59 11/19/17 20:30 Heparin Sodium (Porcine) (Heparin 5000 units/ml) 5,000 units EVERY 12 HOURS SUBQ 11/18/17 09:00 12/18/17 08:59 11/20/17 08:41 Insulin Aspart (NovoLOG) BEFORE MEALS AND HS SUBQ 11/18/17 06:30 12/18/17 06:29 Metoprolol Tartrate (Lopressor) 25 mg TID PRN ORAL HR > 120 11/18/17 09:00 12/18/17 08:59 Ondansetron HCl (Zofran) 4 mg Q6H PRN IVP Nausea & Vomiting 11/18/17 05:15 12/18/17 05:14 Polyethylene Glycol (Miralax) 17 gm DAILYPRN PRN ORAL Constipation 11/18/17 05:15 12/18/17 05:14 Temazepam (Restoril) 15 mg HSPRN PRN ORAL Insomnia 11/18/17 05:15 11/25/17 05:14 Assessment/Plan Status: stable, progressing Assessment/Plan anxiety d/o -zoloft 50mg Robert Torres M.D. Nov 20, 2017 23:11
--- NOTE | 2017-11-20 23:48 | General Progress Note ---
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 Whyte ([facility]) --> has been on rituxan over the past 7 years as well as a NHL per patient that is in the actual lymph nodes. --> Continue treatment as outpatient # Prostate cancer - s/p treatment and currently stable --> psa <0.10 # Anemia of chronic disease - likely related to chronic disease, workup has been reviewed --> Blood transfusion not required unless symptomatic or hgb<7 # Leukocytosis likely related to reactive process versus from lymphoma, currently stable --> continue to monitor --> Improved. # Chest pain. This could be secondary to underlying ischemic heart disease. --> He has history of moderate coronary artery disease, on medical therapy only. # Myocardial infarction is ruled out. The patient is currently chest pain free. s/p watchman device # History of acute heart failure with preserved ejection fraction Subjective Date patient seen: Nov 20, 2017 Constitutional: Denies: no symptoms, chills, diaphoresis, fever, malaise, weakness, other HEENT: Denies: no symptoms, eye pain, blurred vision, tearing, double vision, ear pain, ear discharge, nose pain, nose congestion, throat pain, throat swelling, mouth pain, mouth swelling, other Cardiovascular: Denies: no symptoms, chest pain, edema, irregular heart rate, lightheadedness, palpitations, syncope, other Respiratory: Denies: no symptoms, cough, orthopnea, shortness of breath, SOB with excertion, SOB at rest, sputum, stridor, wheezing, other Gastrointestinal/Abdominal: Denies: no symptoms, abdomen distended, abdominal pain, black stools, tarry stools, blood in stool, constipated, diarrhea, difficulty swallowing, nausea, poor appetite, poor fluid intake, rectal bleeding , vomiting, other Genitourinary: Denies: no symptoms, burning, discharge, frequency, flank pain, hematuria, incontinence, pain, urgency, other Allergies: Coded Allergies: CIPROFLOXACIN (Verified Allergy, Intermediate, 07/06/16) ALLOPURINOL (Verified Allergy, Mild, Rash, 07/12/12) ERYTHROMYCIN BASE (Verified Allergy, Mild, RASH, 07/12/12) Subjective NAD. No fever. Pending discharge. Objective Last 24 Hour Vital Signs Date Time Temp Pulse Resp B/P (MAP) Pulse Ox O2 Delivery O2 Flow Rate FiO2 11/20/17 20:00 97.3 72 18 114/77 99 11/20/17 16:00 98.1 89 18 129/70 96 Room Air 11/20/17 16:00 81 11/20/17 15:47 71 11/20/17 12:00 98.1 71 19 120/78 96 Room Air 11/20/17 08:39 67 11/20/17 08:39 67 116/62 11/20/17 08:13 74 20 Room Air 21 11/20/17 08:00 96.8 71 19 116/74 96 Room Air 11/20/17 08:00 68 11/20/17 04:00 98.6 87 18 112/62 97 Room Air 11/20/17 04:00 60 11/20/17 00:00 72 11/20/17 00:00 98.1 90 20 121/79 98 Room Air Intake and Output 11/19/17 11/20/17 19:00 07:00 Intake Total 360 ml Output Total 1000 ml 1000 ml Balance -640 ml -1000 ml Intake Oral 360 ml Output Urine Total 1000 ml 1000 ml # Bowel Movements 2 2 Laboratory Tests 11/20/17 10:10: Urine Color Pale yellow, Urine Appearance Very cloudy, Urine pH 7, Urine Specific Xenia 1.010, Urine Protein 2+H, Urine Glucose (UA) Negative, Urine Ketones Negative, Urine Occult Blood 5+H, Urine Nitrite PositiveH, Urine Bilirubin Negative, Urine Urobilinogen Normal, Urine Leukocyte Esterase 3+H, Urine RBC TntcH, Urine WBC TntcH, Urine Squamous Epithelial Cells Occasional, Urine Bacteria ModerateH Height (Feet): 5 Height (Inches): 8.00 Weight (Pounds): 149 General Appearance: no apparent distress EENT: normal ENT inspection Neck: supple Cardiovascular: normal rate Respiratory/Chest: lungs clear Abdomen: soft Skin: warm/dry Raphael Huertas Nov 20, 2017 23:48
[2017-11-21] MEDS ORDERED: Sertraline 50mg tab ORAL SCH (09:00)
--- NOTE | 2017-11-21 12:08 | Discharge Summary ---
Discharge Summary Hospital Course Date of Admission Nov 17, 2017 at 22:29 Date of Discharge Nov 20, 2017 at 22:25 Admitting Diagnosis Chest pain HPI David Us is a 82 year old male who was admitted on Nov 17, 2017 at 22:29 for Chest Pain Hospital Course dc summary #[id number] Discharge Medications Continued Medications: Aspirin* (Aspirin Ec*) 325 Mg Tablet.dr 325 MG ORAL DAILY, TAB Digoxin* (Digoxin*) 125 Mcg Tablet 125 MCG ORAL DAILY, TAB Gabapentin* (Gabapentin*) 300 Mg Capsule 300 MG ORAL BEDTIME, CAP Metoprolol Tartrate* (Metoprolol Tartrate*) 25 Mg Tablet 25 MG ORAL TID, TAB Discharge Condition Upon Discharge: stable Discharge Disposition Patient was discharged to Home with Home Health(06) Discharge Diagnoses: Discharge Instructions Discharge Instructions Special Instructions I have been assigned to complete a D/C Summary on this account. I was not involved in the patient management Angie Kinney NP (Vanchtein) Nov 21, 2017 12:08
--- NOTE | 2017-11-24 12:55 | Discharge Summary 2 SIG ---
DATE OF ADMISSION: 11/17/2017 DATE OF DISCHARGE: 11/20/2017 REASON FOR ADMISSION: 82-year-old male with history of prostate cancer, T-cell lymphoma, hypertension, congestive heart failure and permanent atrial fibrillation, presented to the emergency department with chief complaint of chest pressure that started that afternoon prior to presentation. He stated it occurred during him taking pulmonary function test. No nausea. No vomiting. No fever. No chills. No shortness of breath. No diaphoresis. No radiation of chest pain. Vital signs were stable. Troponin was negative. The patient refused aspirin. Lasix was given. EKG revealed atrial fibrillation, with uncontrolled ventricular rate. No acute ischemic changes. Chest x-ray revealed some vascular congestion. Pro BNP -2047. The patient was admitted with diagnosis of chest pain, permanent atrial fibrillation, history of acute heart failure, and hypertension. HOSPITAL COURSE: The patient was admitted to telemetry floor. Cardiology closely followed. Serial troponin x3 were negative. The patient continued to be in permanent atrial fibrillation, rate was controlled with beta-radha and digoxin. No anticoagulation, just aspirin. Echocardiogram revealed preserved ejection fraction of 60% to 65%. Venous duplex of bilateral lower extremities was negative. According to mushroom packer, chest pain may be secondary to underlying ischemic heart disease. The patient apparently had a history of moderate coronary artery disease per nuclear stress test done at [facility]. He recommended to continue aspirin, statin, and follow up with Dr. Hugo, his primary mushroom packer. The patient with status post Watchman device for permanent atrial fibrillation since he did not tolerate anticoagulation therapy in the past, and rate was controlled with metoprolol and digoxin. Myocardial infarction was ruled out with three serial troponin being negative and no acute ischemic changes on EKG. The patient had a history of acute heart failure in 05/2017 while hospitalized at [facility]. At this time, clinically, he did not appear to be in heart failure. Education Instructor recommended to keep on diuretic, but wanted n marine steam fitter helper input due to chronic kidney disease. Blood pressure was stable with current medication regimen. Mining Analyst closely followed. Renal parameters and electrolytes were closely monitored. BUN from initial 24 up to 27 and creatinine from initial 2 up to 2.3. Nephrotoxins were avoided, however, Lasix x1 was given in the emergency department. Electrolytes were closely monitored and corrected as needed. Renal ultrasound was ordered, but the patient refused. Electrolytes were stable. Paint Stockman followed the patient. Anemia workup revealed findings consistent with anemia of chronic disease. Hemoglobin and hematocrit remained on baseline. No need for transfusion until the patient becomes symptomatic or hemoglobin below 7. The patient with a history of prostate cancer, status post treatment, currently stable, PSA less than 0.1. The patient also had a history of T-cell lymphoma, on treatment with Dr. Whyte. He had been on chemotherapy and laundry sorter/ oncologist recommended continued treatment as outpatient. Urologist had seen and evaluated the patient given the history of prostate cancer. Per urologist, the patient had a history of bladder cancer, renal insufficiency and urostomy in place, which appears to be draining clear urine. According to urologist, the patient should follow up with his regular urologist upon discharge unless he develops any complication. Urine culture was sent. Initially, urinalysis revealed very cloudy urine with too numerous to count leukocytes and moderate bacteria, and subsequently urine culture came back with Citrobacter and Pseudomonas The patient received antibiotic as per ID recommendations. Wound care nurse had seen and evaluated the patient for sacral coccyx deep tissue injury present on admission. Wound care provided as per wound care nurse recommendation. The patient was stable for discharge home with home health services as prior to discharge. FINAL DIAGNOSES: 1. Chest pain, probably secondary to underlying ischemic heart disease. 2. Permanent atrial fibrillation, status post Watchman device. 3. History of acute heart failure. 4. Hypertension. 5. Citrobacter/Pseudomonas urinary tract infection. 6. Acute kidney injury and chronic kidney disease. 7. Anemia of chronic disease. 8. Dyslipidemia. 9. History of prostate cancer, status post treatment. 10. T-cell lymphoma. 11. Sacral coccyx deep tissue injury pressure ulcer, present on admission. DISCHARGE MEDICATIONS: See medication reconciliation list. DISCHARGE INSTRUCTIONS: The patient was discharged home with home health services. Follow up with the primary medical doctor in one week. Morro Valente D.O. I have been assigned to dictate discharge summary on this account and I was not involved in the patient's management. Angie Kinney N.P. (Vanchtein) DR: VAIBHAV JOB#: [id number] CC: [id number]
== END 2017-11-20 22:25 | disposition home health service (06) | DRG 303 ==
LOC: EDBD 21:23 → EMR 21:30 → 2E 22:29 → EDBEDREQ 22:57 → 2E 11-20 09:40
DX: I25.9 Chronic ischemic heart disease, unspecified (principal); N17.9 Acute kidney failure, unspecified; L89.150 Pressure ulcer of sacral region, unstageable; C85.90 Non-Hodgkin lymphoma, unspecified, unspecified site; I13.0 Hypertensive heart and chronic kidney disease with heart failure and stage 1 through stage 4 chronic kidney disease, or unspecified chronic kidney disease; I50.9 Heart failure, unspecified; N39.0 Urinary tract infection, site not specified; E11.9 Type 2 diabetes mellitus without complications; D63.8 Anemia in other chronic diseases classified elsewhere; I25.119 Atherosclerotic heart disease of native coronary artery with unspecified angina pectoris; Z43.3 Encounter for attention to colostomy; N18.9 Chronic kidney disease, unspecified; Z85.51 Personal history of malignant neoplasm of bladder; I48.2 Chronic atrial fibrillation; Z85.46 Personal history of malignant neoplasm of prostate; Z79.4 Long term (current) use of insulin; E78.5 Hyperlipidemia, unspecified; Z88.1 Allergy status to other antibiotic agents; Z88.8 Allergy status to other drugs, medicaments and biological substances
CPT/HCPCS: 36415; 71045; 80048; 80053; 80162; 81003; 82043; 82044; 82550; 82553; 82570; 82607; 82728; 82746; 82962; 83090; 83540; 83550; 83880; 83921; 84153; 84300; 84484; 85007; 85025; 85044; 85060; 85384; 85610; 85730; 87070; 87086; 87181; 87205; 89050; 93005; 93306; 93970; 94664; 97803; 99285; J1815